=== PATIENT | male | born 1930 | race Caucasian/White ===

== ENCOUNTER 2016-04-09 11:05 | Inpatient (IN) ==
[2016-04-09] MEDS ORDERED: Alteplase (Activase) 6 MG in EMPTY BAG 1 EACH IVP ONE (11:22)
--- NOTE | 2016-04-09 11:36 | Emergency Department Note ---
Disposition Clinical Impression: Weakness, Dysphasia, Acute on chronic renal insufficiency CVA (cerebral vascular accident) Qualifiers: CVA mechanism: unspecified Qualified Code(s): I63.9 - Cerebral infarction, unspecified Disposition: Admitted As Inpatient Condition: Fair Neuro HPI - General Chief Complaint: ED Neuro Symptoms/Deficit Stated Complaint: poss stroke Time Seen by Provider: 04/09/16 11:08 Source: patient, EMS Mode of arrival: EMS Limitations: no limitations Nursing Notes Reviewed: Yes Vital Signs Reviewed: Yes - History of Present Illness HPI Narrative: 85-year-old male history of hypertension hyperlipidemia, suspected possible previous TIAs however no previous stroke documented, per patient and his daughter, he woke up at 6 AM with a headache, prior to that her last and well was on 04/08 at 9 PM, after 6 AM, he had the headache did not get up or do anything and went straight back to sleep. He woke up again at 8:30 AM with a headache still but now had difficulty with word finding, difficulty reading and speaking, and some gait issues per his daughter. No weaknesses as upper or lower extremities. Presented to the [facility], he was then transferred to the [facility] arrival per documented in nursing documentation, still with headache, some slurred speech although this is improved per patient. Onset of Symptoms Date: 04/08/16 Onset of Symptoms Time: 21:00 Symptom Onset Unknown: No Location: speech, right face, dysarthria History of same: No Severity: mild Quality: weakness (facial) Improves with: time Worsens with: none Context: gradual onset On Anticoagulants: No Associated symptoms: Reports: headaches. Denies: confusion, chest pain, diaphoresis, loss of appetite, nausea/vomiting Treatments Prior to Arrival: none - Related Data Home Medications: Home Medications Medication Instructions Recorded Confirmed Albuterol Sulfate [Albuterol 2 puff IH Q6H PRN 04/09/16 04/09/16 Inhaler] Aspirin Enteric Coated [Aspirin EC] 81 mg PO DAILY 04/09/16 04/09/16 Fluticasone Propionate Nasal 100 mcg NS BID 04/09/16 04/09/16 [Flonase] Hydrochlorothiazide 25 mg PO DAILY 04/09/16 04/09/16 Ibuprofen [Motrin] 600 mg PO TID PRN 04/09/16 04/09/16 Ketoconazole 2% CRM [Nizoral Cream] 1 appl TP DAILY 04/09/16 04/09/16 Lisinopril [Zestril] 5 mg PO DAILY 04/09/16 04/09/16 Olodaterol HCl [Striverdi Respimat] 2 puff IH DAILY 04/09/16 04/09/16 Propylene Glycol/Peg 400 [Systane 1 drop BOTH EYES QID 04/09/16 04/09/16 0.3-0.4% Eye Drops] Ranitidine HCl [Acid Production Honing Machine Operator] 150 mg PO DAILY PRN 04/09/16 04/09/16 Sennosides/Docusate Sodium [Senna 1 each PO BID 04/09/16 04/09/16 Plus] Tamsulosin [Flomax] 0.4 mg PO DAILY 04/09/16 04/09/16 Allergies/Adverse Reactions: Allergies Allergy/AdvReac Type Severity Reaction Status Date / Time carbamazepine AdvReac Hives Verified 04/09/16 11:08 niacin AdvReac Hives Verified 04/09/16 11:08 All systems ED: reviewed and negative except as stated. Constitutional: Reports: as per HPI, weakness. Denies: fever, chills Cardiovascular: Denies: chest pain, palpitations, dyspnea on exertion Respiratory: Denies: cough, dyspnea, wheezes Gastrointestinal: Denies: abdominal pain, nausea, vomiting, diarrhea Genitourinary: Denies: urgency, dysuria, frequency Musculoskeletal: Denies: back pain, neck pain Neurological: Reports: headache, weakness, confusion, abnormal gait. Denies: numbness, paresthesias, vertigo Psychiatric: Denies: anxiety, depression Past Medical History - Past Medical History Attestation: Yes The following information was validated with the patient. Source: patient Medical history: Reports: arthritis, cancer, COPD, coronary artery disease, hyperlipidemia, hypertension, TIA Psychiatric history: Reports: no psych history - Social History Smoking Status: Unknown if ever smoked Smokeless Tobacco Status: No Alcohol use: Reports: none Drug use: Reports: none Physical Exam Constitutional: Elderly male in no acute distress, vital signs within normal limits, appears stated age, is mildly confused HEENT: NCAT, sclera anicteric, PERRLA bilaterally, mucous membranes dry. Neck: normal inspection, neck is supple, trachea midline, no JVD Resp: normal chest inspection, CTA bilaterally, no resp distress, symmetric chest rise CV: RRR, no m/g/r, Pulses +2 Rad, +2 DP/PT bilaterally, no pedal edema GI: normal inspection, Soft, NTND, BS present and normoactive Back: normal inspection, no tenderness to palpation Neuro: Alert and oriented to self and place knows his age and what month it is , NIH of 4C documentation, has mild dysarthria and aphasia, left-sided facial numbness and facial droop him a 5/5 motor bilateral upper and lower extremities. MSK: normal inspection, bilateral UE and LE with normal ROM and no deformities Psych: normal mood, normal affect Skin: No rashes, skin warm, dry, intact - General Limitations: no limitations General appearance: alert Course Course Narrative: 85 male with acute onset of neurologic symptoms including dysarthria and aphasia , facial droop, gait weakness per family, besides his gait which was not tested , his NIH was 4, see nursing augmentation for times, patient was evaluated in the emergency department within 5 minutes, a stroke alert was called due to possible last known well of 6 AM, within 5-1/2 hours of the stroke window, however his symptoms did start with a headache at 6 AM, this morning at 9 PM yesterday 04/08 he was last seen and feeling well. Therefore unclear if his etiology was within the last 5 hours or further out. [facility] neurology consultation, stat CT ordered, tpa ordered pending not to be given, call to pharmacy also, patient is not likely a TPA candidate given age, improvement of symptoms, mild symptoms with an NIH of 4, and unclear stroke window either 5 and half hours or greater than 12 hours out from acute onset - Reevaluation(s) Reevaluation #1: Spoke with Dr Romero, agrees with plan, and management this time, patient with negative CTA head and neck negative for acute thrombus therefore will defer from transferring to [facility] and admit to [place], will do inpatient admission, stroke workup admit to hospitalist. Time: 15:10 Reevaluation #2: ADmitted to Dr Patterson after discussion with neurology in stable condition. 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 at 11:38 states no education for 6 AM lasted well, will make it a 9 PM 04/08/2016 last him well given that he woke up with a headache, but did not walk around talk just went back to sleep, for this reason the patient will be in a 16 hour window for endovascular retrieval, otherwise admit for ischemic CVA to [place], possible retrieval if he has any positive findings on CTA head and neck, at this time called Pharmacy at 11:51 to cancel TPA Consultation #2: Head CT Negative per margot Gan Time: 11:51 Vital Signs Temperature 98.7 F 04/09/16 11:09 Pulse Rate 69 04/09/16 11:09 Respiratory Rate 16 04/09/16 11:09 Blood Pressure 162/74 04/09/16 11:09 O2 Sat by Pulse Oximetry 98 04/09/16 11:09 Temperature 98.7 F 04/09/16 11:09 Pulse Rate 73 04/09/16 14:31 Respiratory Rate 16 04/09/16 15:45 Blood Pressure 156/82 04/09/16 15:45 O2 Sat by Pulse Oximetry 99 04/09/16 14:31 Oxygen Delivery Oxygen Delivery Room Air Neuro Symptoms/Deficit - MDM Narrative Medical decision making narrative: 84-year-old male with probable CVA, last and well was at 9 PM, therefore no candidacy for TPA and out of the window for revascularization given no evidence of acute thrombus on CTA of head or neck, chest medicine service after consultation with neurology, stable condition - Differential Diagnosis Likely: cerebrovascular accident, transient cerebral ischemia - Medical Records Medical records reviewed: Yes I reviewed the patient's medical records. - Lab Data Lab results reviewed: Yes I reviewed the patient's lab results. Result diagrams: 04/09/16 11:30 04/09/16 11:30 Lab Results 04/09/16 04/09/16 04/09/16 Range/Units 11:10 11:30 11:30 WBC 10.3 (4.3-11.1) K/mcL RBC 4.63 (4.19-5.50) M/mcL Hgb 13.9 (12.9-16.9) g/dL Hct 41.2 (37.5-50.1) % MCV 89.0 (83.0-100.0) fL MCH 30.0 (28.0-33.3) pg MCHC 33.7 (31.6-35.5) g/dL RDW 13.4 (11.5-14.5) % Plt Count 249 (140-400) K/mcL MPV 9.1 L (9.4-12.4) fL Immature Gran % 0.3 (0-4) % Seg Neutrophils % 58.8 % Lymphocytes % 30.5 % Monocytes % 8.0 % Eosinophils % 1.9 % Basophils % 0.5 % Neutrophils # 6.0 (1.6-8.9) K/mcL Lymphocytes # 3.1 (0.6-4.6) K/mcL Monocytes # 0.8 (0.0-1.3) K/mcL Eosinophils # 0.2 (0.0-0.6) K/mcL Basophils # 0.1 (0.0-0.2) K/mcL PT 10.3 (9.4-12.1) Seconds INR 1.0 APTT 31.0 (26.0-36.0) Seconds Sodium (136-145) mEq/L Potassium (3.5-4.5) mEq/L Chloride (98-109) mEq/L Carbon Dioxide (19-29) mEq/L BUN (8-26) mg/dL Creatinine (0.72-1.25) mg/dL Est GFR ( Amer) (> 60) Est GFR (Non-Af Amer) (> 60) BUN/Creatinine Ratio (6-26) Glucose (70-99) mg/dL POC Glucose 89 (58-89) Calculated Osmolality (280-300) Calcium (8.6-10.8) mg/dL Troponin I (0-0.03) ng/mL 04/09/16 04/09/16 Range/Units 11:30 11:30 WBC (4.3-11.1) K/mcL RBC (4.19-5.50) M/mcL Hgb (12.9-16.9) g/dL Hct (37.5-50.1) % MCV (83.0-100.0) fL MCH (28.0-33.3) pg MCHC (31.6-35.5) g/dL RDW (11.5-14.5) % Plt Count (140-400) K/mcL MPV (9.4-12.4) fL Immature Gran % (0-4) % Seg Neutrophils % % Lymphocytes % % Monocytes % % Eosinophils % % Basophils % % Neutrophils # (1.6-8.9) K/mcL Lymphocytes # (0.6-4.6) K/mcL Monocytes # (0.0-1.3) K/mcL Eosinophils # (0.0-0.6) K/mcL Basophils # (0.0-0.2) K/mcL PT (9.4-12.1) Seconds INR APTT (26.0-36.0) Seconds Sodium 139 (136-145) mEq/L Potassium 4.1 (3.5-4.5) mEq/L Chloride 105 (98-109) mEq/L Carbon Dioxide 26 (19-29) mEq/L BUN 18 (8-26) mg/dL Creatinine 1.26 H (0.72-1.25) mg/dL Est GFR ( Amer) > 60 (> 60) Est GFR (Non-Af Amer) 55 L (> 60) BUN/Creatinine Ratio 14 (6-26) Glucose 95 (70-99) mg/dL POC Glucose (58-89) Calculated Osmolality 290 (280-300) Calcium 9.6 (8.6-10.8) mg/dL Troponin I 0.01 (0-0.03) ng/mL - Radiology Data Radiology results reviewed: Yes I reviewed the patient's radiology results. - EKG Data EKG attestation: Yes I reviewed and interpreted this EKG. EKG shows normal: sinus rhythm Rate: normal (Rate of 70 R1 66 QRS [address] depression in lead V3 seen on previous EKG) Interpretation: no acute changes - Core Measures AMI Core Measures Followed: No Measure Exclusions: not indicated NIH Stroke Scale - Level of Consciousness LOC: Alert - LOC Questions LOC Questions: Answers both correctly - LOC Commands LOC Commands: Performs both correctly - Best Gaze Best Gaze: Normal - Visual Visual: No visual loss - Facial Palsy Facial Palsy: Minor asymmetry on smiling, flattened nasolabial fold - Motor Arms Motor Arm-Left: No drift for 10 seconds Motor Arm-Right: No drift for 10 seconds - Motor Legs Motor Leg-Left: No drift for 5 seconds Motor Leg-Right: No drift for 5 seconds - Limb Ataxia Limb Ataxia: Absent of affected limb too weak to perform exam - Sensory Sensory: Mild to moderate loss, "not as sharp" - Best Language Best Language: Mild to moderate aphasia. Examiner can identify picture from response - Dysarthria Dysarthria: Mild, slurs some words - Extinction and Inattention Extinction and Inattention: Normal - NIHSS Total Score NIHSS Total Score: 4 TPA Checklist - Source Information Source: Family - Eligibilty for IV tPA 1. LKW equal to or less than 4.5 hours be before treatment: No 2. Clinical diagnosis of ischemic stroke causing deficit: Yes 3. Age 18 years or older: Yes - Contraindications 4. Evidence of intracranial hemorrhage on pretreatment CT: No 5. Presentation suggests subarachnoid hem, even if CT normal: No 6. CT shows multilobar infarction: No 7. History of intracranial hemorrhage: No 8. Known neoplasm, arteriovenous malformation, or aneurysm: No 9. Significant head trauma (w/ LOC) or CVA in last 3 months: No 10. Intracranial or intraspinal surgery in 3 months: No 11. Arterial puncture at non-compressable site/LP in 7 days: No 12. BP elevated (systolic > 185 or diastolic > 110): No 13. Abnormal Blood Glucose (<50 or >400mg/dl): No 14. Active internal bleeding: No 15. Known bleeding risk (including; not limited to 16-18): No 16. Heparin/argatroban/bivalirudin w/in 48hrs & PTT > normal: No 17. Platelet count less than 100,000/MM3: No 18. Current or recent use of anticoagualants (see protocol): No - Relative Contraindications 19. Only minor or rapidly improving stroke symptoms: Yes 20. Seizure at onset w/ postictal residual neuro impairments: No 21. : No 22. Current/recent use Effient (7 days) or Brilinta (5 days): No 23. Major surgery or serious truama in last 14 days: No 24. GI or urinary tract hemorrhage in last 21 days: No 25. Myocardial infarction within last 3 months: No - LKW: 3-4.5 hrs Add. Contraindications Patient/family understanding: The patient/family members have been counseled and understood the risk, benefit , and alternatives of treatment.
[2016-04-09 11:37] LABS: Basophils # 0.1 K/mcL (0.0-0.2); Basophils % 0.5 %; Eosinophils # 0.2 K/mcL (0.0-0.6); Eosinophils % 1.9 %; Hematocrit 41.2 % (37.5-50.1); Hemoglobin 13.9 g/dL (12.9-16.9); Immature Granulocytes % 0.3 % (0-4); Lymphocytes # 3.1 K/mcL (0.6-4.6); Lymphocytes % 30.5 %; Mean Corpuscular HGB Conc 33.7 g/dL (31.6-35.5); Mean Platelet Volume 9.1 fL (9.4-12.4); Monocytes # 0.8 K/mcL (0.0-1.3); Red Blood Count 4.63 M/mcL (4.19-5.50); Red Cell Distribution Width 13.4 % (11.5-14.5); Segmented Neutrophils % 58.8 %
[2016-04-09 11:39] LABS: Platelet Count 249 K/mcL (140-400)
[2016-04-09 11:48] LABS: Prothrombin Time 10.3 Seconds (9.4-12.1)
[2016-04-09 11:49] LABS: BUN/Creatinine Ratio 14 (6-26); Blood Urea Nitrogen 18 mg/dL (8-26); Calcium 9.6 mg/dL (8.6-10.8); Carbon Dioxide 26 mEq/L (19-29); Chloride 105 mEq/L (98-109); Glucose 95 mg/dL (70-99); Osmolality,Calculated 290 (280-300); Potassium 4.1 mEq/L (3.5-4.5); Sodium 139 mEq/L (136-145); eGFR For African Americans > 60 (> 60); eGFR For Non-African Americans 55 (> 60)
--- NOTE | 2016-04-09 11:52 | Emergency Department Note ---
Disposition Clinical Impression: Weakness, Dysphasia, CVA (cerebral vascular accident), Acute on chronic renal insufficiency Disposition: Admitted As Inpatient Condition: Fair General Adult HPI - General Chief complaint: ED Neuro Symptoms/Deficit Stated complaint: poss stroke Time Seen by Provider: 04/09/16 11:08 Source: patient, EMS Mode of arrival: EMS Limitations: no limitations - History of Present Illness Pain Scale: 0 - Related Data Home Medications Medication Instructions Recorded Confirmed Albuterol Sulfate [Albuterol 2 puff IH Q6H PRN 04/09/16 04/10/16 Inhaler] Fluticasone Propionate Nasal 100 mcg NS BID 04/09/16 04/10/16 [Flonase] Hydrochlorothiazide 25 mg PO DAILY 04/09/16 04/10/16 Ibuprofen [Motrin] 600 mg PO TID PRN 04/09/16 04/10/16 Ketoconazole 2% CRM [Nizoral Cream] 1 appl TP DAILY 04/09/16 04/10/16 Lisinopril [Zestril] 5 mg PO DAILY 04/09/16 04/10/16 Olodaterol HCl [Striverdi Respimat] 2 puff IH DAILY 04/09/16 04/10/16 Propylene Glycol/Peg 400 [Systane 1 drop BOTH EYES QID 04/09/16 04/10/16 0.3-0.4% Eye Drops] Ranitidine HCl [Acid Tassel Clipper] 150 mg PO DAILY PRN 04/09/16 04/10/16 Sennosides/Docusate Sodium [Senna 1 each PO BID 04/09/16 04/10/16 Plus] Tamsulosin [Flomax] 0.4 mg PO DAILY 04/09/16 04/10/16 Oxycodone HCl/Acetaminophen 1 each PO Q4HR PRN 04/12/16 04/12/16 [Percocet 5-325 mg Tablet] Previous Rx's Medication Instructions Recorded Aspirin 325 mg PO DAILY #30 tablet 04/10/16 Simvastatin [Zocor] 40 mg PO HS tablet 04/10/16 Allergies Allergy/AdvReac Type Severity Reaction Status Date / Time carbamazepine AdvReac Hives Verified 04/10/16 17:12 niacin AdvReac Hives Verified 04/10/16 17:12 Past Medical History - Past Medical History Medical history: Reports: arthritis, cancer, COPD, coronary artery disease, hyperlipidemia, hypertension, TIA Psychiatric history: Reports: no psych history - Social History Smoking Status: Unknown if ever smoked Smokeless Tobacco Status: No Alcohol use: Reports: none Drug use: Reports: none Physical Exam - General Limitations: no limitations General appearance: alert Course - Reevaluation(s) Reevaluation #1: I saw the patient with the resident, Dr. Juan. Patient presents with what sounds like strokelike symptoms which included aphasia like symptoms. Patient states he woke up about 6:00 with a headache and went back to sleep when he woke up at 8:00 he was having some difficulty formulating words. He was also having difficulty reading. Currently he appears a little droop on the face on the right hand side. 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 The cranial nerve examination otherwise appears to be normal. Rest of the neurologic examination seems good. If we go with the 6:00 onset of symptoms, the patient is 5 hours into the symptoms. If we go with the 8:00 onset and the patient is already 3 hours into symptoms by the time he arrived to the department. Either way he is not a TPA candidate but may be a candidate for endovascular treatment. We called a stroke alert and says where they have spoken with the subacute stroke specialist at [facility]. He recommended CTA of the brain and neck. If the clot is found to then the patient is to be transferred to [facility] for endovascular recovery. If the CTA is negative then the patient can be admitted here or [facility] for stroke as the patient desires. The CTA has been ordered. We will monitor the patient. Time: 11:52 Vital Signs Temperature 98.7 F 04/09/16 11:09 Pulse Rate 69 04/09/16 11:09 Respiratory Rate 16 04/09/16 11:09 Blood Pressure 162/74 04/09/16 11:09 O2 Sat by Pulse Oximetry 98 04/09/16 11:09 Temperature 97.6 F 04/10/16 07:45 Pulse Rate 62 04/10/16 11:32 Respiratory Rate 18 04/10/16 11:32 Blood Pressure 117/69 04/10/16 11:32 O2 Sat by Pulse Oximetry 96 04/10/16 11:32 Oxygen Delivery Oxygen Delivery Room Air Medical Decision Making - Lab Data Result diagrams: 04/10/16 05:56 04/10/16 05:56 Lab Results 04/09/16 04/09/16 04/09/16 Range/Units 11:10 11:30 11:30 WBC 10.3 (4.3-11.1) K/mcL RBC 4.63 (4.19-5.50) M/mcL Hgb 13.9 (12.9-16.9) g/dL Hct 41.2 (37.5-50.1) % MCV 89.0 (83.0-100.0) fL MCH 30.0 (28.0-33.3) pg MCHC 33.7 (31.6-35.5) g/dL RDW 13.4 (11.5-14.5) % Plt Count 249 (140-400) K/mcL MPV 9.1 L (9.4-12.4) fL Immature Gran % 0.3 (0-4) % Seg Neutrophils % 58.8 % Lymphocytes % 30.5 % Monocytes % 8.0 % Eosinophils % 1.9 % Basophils % 0.5 % Neutrophils # 6.0 (1.6-8.9) K/mcL Lymphocytes # 3.1 (0.6-4.6) K/mcL Monocytes # 0.8 (0.0-1.3) K/mcL Eosinophils # 0.2 (0.0-0.6) K/mcL Basophils # 0.1 (0.0-0.2) K/mcL PT 10.3 (9.4-12.1) Seconds INR 1.0 APTT 31.0 (26.0-36.0) Seconds Sodium (136-145) mEq/L Potassium (3.5-4.5) mEq/L Chloride (98-109) mEq/L Carbon Dioxide (19-29) mEq/L BUN (8-26) mg/dL Creatinine (0.72-1.25) mg/dL Est GFR ( Amer) (> 60) Est GFR (Non-Af Amer) (> 60) BUN/Creatinine Ratio (6-26) Glucose (70-99) mg/dL POC Glucose 89 (58-89) Calculated Osmolality (280-300) Calcium (8.6-10.8) mg/dL Troponin I (0-0.03) ng/mL 04/09/16 04/09/16 04/09/16 Range/Units 11:30 11:30 16:55 WBC (4.3-11.1) K/mcL RBC (4.19-5.50) M/mcL Hgb (12.9-16.9) g/dL Hct (37.5-50.1) % MCV (83.0-100.0) fL MCH (28.0-33.3) pg MCHC (31.6-35.5) g/dL RDW (11.5-14.5) % Plt Count (140-400) K/mcL MPV (9.4-12.4) fL Immature Gran % (0-4) % Seg Neutrophils % % Lymphocytes % % Monocytes % % Eosinophils % % Basophils % % Neutrophils # (1.6-8.9) K/mcL Lymphocytes # (0.6-4.6) K/mcL Monocytes # (0.0-1.3) K/mcL Eosinophils # (0.0-0.6) K/mcL Basophils # (0.0-0.2) K/mcL PT (9.4-12.1) Seconds INR APTT (26.0-36.0) Seconds Sodium 139 (136-145) mEq/L Potassium 4.1 (3.5-4.5) mEq/L Chloride 105 (98-109) mEq/L Carbon Dioxide 26 (19-29) mEq/L BUN 18 (8-26) mg/dL Creatinine 1.26 H (0.72-1.25) mg/dL Est GFR ( Amer) > 60 (> 60) Est GFR (Non-Af Amer) 55 L (> 60) BUN/Creatinine Ratio 14 (6-26) Glucose 95 (70-99) mg/dL POC Glucose (58-89) Calculated Osmolality 290 (280-300) Calcium 9.6 (8.6-10.8) mg/dL Troponin I 0.01 0.00 (0-0.03) ng/mL Attestation Statement - Attestation Attestation: I, Dr. Chow, examined this patient [id number] and my medical decision- making was reviewed with Dr. Juan, Resident Physician. I agree with the documented findings, disposition and treatment plan as described except to the extent set forth below. Please see my progress notes for details.
[2016-04-09] MEDS ORDERED: 0.9 % Sodium Chloride 500 ML IV ONE (12:21)
[2016-04-09] MEDS ORDERED: Aspirin 81 MG TAB.CHEW PO ONE (12:47)
--- NOTE | 2016-04-09 15:33 | Electrocardiograph Report ---
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
--- NOTE | 2016-04-09 16:11 | Internal Med History&Physical ---
Date of Encounter: 04/09/16 Time of Encounter: 16:03 Assessment and Plan (1) CVA (cerebral vascular accident) Current visit: Yes Status: Acute Clinical and tomographic picture consistent with CVA, no history of prior CVAs documented. Out of window for therapy with tPA. Patient is a chronic user of aspirin. Head CT noted, CT angio of head and neck noted. Will continue with aspirin and DVT prophylais. Tele monitoring. Neurology consult for further recommendations. Neuro checks. Echo. Smoking cessation. Lipid panel. A1C PT OT eval. advisory services associate eval. Qualifiers: CVA mechanism: unspecified Qualified Code(s): I63.9 - Cerebral infarction, unspecified (2) COPD (chronic obstructive pulmonary disease) Current visit: Yes Status: Acute LTOT. NBZ PRN. Qualifiers: COPD type: unspecified COPD Qualified Code(s): J44.9 - Chronic obstructive pulmonary disease, unspecified (3) Tobacco use disorder Current visit: Yes Status: Acute (4) Hypertension Current visit: Yes Status: Acute Continue monitoring for now. Qualifiers: Hypertension type: essential hypertension Qualified Code(s): I10 - Essential (primary) hypertension (5) Hyperlipidemia Current visit: Yes Status: Acute Lipid panel. Qualifiers: Hyperlipidemia type: unspecified Qualified Code(s): E78.5 - Hyperlipidemia , unspecified Internal Medicine - H&P: HPI Chief complaint: dysarthria Admitted From: Emergency Dept Plans for Post Hospital Care: Home History of present illness: Mr. Schwartz is a 85 year old male with PMH of HTN, chronic active smoker, hyperlipidemia, COPD on LTOT, presented to our ED due to dysarthria, headache and facial droop which was reported this morning. Patient states that his daughter brought him to the hospital for medical care and evaluation. A stroke alert was called by the ED staff. At 9 PM yesterday 04/08 he was last seen and feeling well. [facility] neurology consultation, stat CT ordered by the ED team , patient was not considered a tPA candidate. Underwent Head CT which ruled out bleeding, however it revealed extensive bilateral cerebral small vessel ischemic disease, due to findings patient underwent CT angio of head and neck. No lesions that could potentially receive endovascular procedures were found. ED team D/W neurology and patient was admitted for further workup. Initial lab results essentially unremarkable. During my encounter eith the patient he was still in the ED holding area, he had lunch and was otherwise in no distress and breathing ambient air. He denies fevr, chest pain, shortness of breath, syncope , falls, trauma, diarrhea. Past Med Surg Social Fam HX - Past Medical History Medical history: arthritis, cancer, COPD, coronary artery disease, hyperlipidemia, hypertension, TIA Psychiatric history: no psych history - Social History Smoking Status: Current every day smoker Smokeless Tobacco Status: No Alcohol use: none Drug use: none - Additional Family History Additional family history: No family history of CAD Internal Medicine - H&P: Meds Albuterol Sulfate [Albuterol Inhaler] 2 puff IH Q6H PRN 04/09/16 [History] Aspirin Enteric Coated [Aspirin EC] 81 mg PO DAILY 04/09/16 [History] Fluticasone Propionate Nasal [Flonase] 100 mcg NS BID 04/09/16 [History] Hydrochlorothiazide 25 mg PO DAILY 04/09/16 [History] Ibuprofen [Motrin] 600 mg PO TID PRN 04/09/16 [History] Ketoconazole 2% CRM [Nizoral Cream] 1 appl TP DAILY 04/09/16 [History] Lisinopril [Zestril] 5 mg PO DAILY 04/09/16 [History] Olodaterol HCl [Striverdi Respimat] 2 puff IH DAILY 04/09/16 [History] Propylene Glycol/Peg 400 [Systane 0.3-0.4% Eye Drops] 1 drop BOTH EYES QID 04/09 [History] Ranitidine HCl [Acid Funds Development Director] 150 mg PO DAILY PRN 04/09/16 [History] Sennosides/Docusate Sodium [Senna Plus] 1 each PO BID 04/09/16 [History] Tamsulosin [Flomax] 0.4 mg PO DAILY 04/09/16 [History] Allergies carbamazepine Adverse Reaction (Verified 04/09/16 11:08) Hives niacin Adverse Reaction (Verified 04/09/16 11:08) Hives All Systems PM: A 10-system review of systems was performed and is negative for pertinent findings except as documented above in the HPI. - Constitutional Constitutional: as per HPI, no chills, no fever(s), no night sweats - EENT Eyes: as per HPI, no change in vision, no discharge, no pain, no photophobia Ears: as per HPI, no ear discharge, no ear pain, no tinnitus Nose, mouth and throat: as per HPI, no dysphagia, no nasal discharge, no neck pain, no sore throat - Breasts Breasts: as per HPI - Cardiovascular Cardiovascular ROS IM: as per HPI, no chest pain, no diaphoresis, no dyspnea, no lightheadedness, no palpitations, no syncope - Respiratory Respiratory: as per HPI, cough, no dyspnea, no wheezing, no excessive phlegm production - Gastrointestinal Gastrointestinal: as per HPI, no abdominal pain, no diarrhea, no hematemesis, no hematochezia, no melena, no nausea, no vomiting - Genitourinary Genitourinary ROS male: as per HPI - Musculoskeletal Musculoskeletal ROS IM: as per HPI, no numbness, no tingling - Integumentary Integumentary IM: as per HPI, no rash, no unusual bruising - Neurological Neurological ROS: as per HPI, abnormal speech, headache(s), no confusion, no convulsions, no focal weakness, no numbness, no tingling, no tremor(s) - Psychiatric Psychiatric: as per HPI - Endocrine Endocrine IM: as per HPI - Hematologic/Lymphatic Hematologic/Lymphatic: as per HPI, no easy bruising - Allergic/Immunologic Allergic/Immunologic: as per HPI - Constitutional Vitals: Temp Pulse Resp BP Pulse Ox 98.7 F 73 16 156/82 99 04/09/16 11:09 04/09/16 14:31 04/09/16 15:45 04/09/16 15:45 04/09/16 14:31 General appearance: Present: cooperative, A&O X 3, pleasant, no acute distress Exam: alert, awake, oriented, pleasant, good spirits. - Head Head exam: Present: atraumatic, normocephalic - Eye Eye exam: Present: PERRL, conjuntiva pink, sclera anicteric Pupils: Present: PERRL - Neck Neck exam general surgery: Present: supple, trachea midline. Absent: lymphadenopathy - Respiratory Respiratory exam: Present: CTAB. Absent: accessory muscle use, rales, rhonchi, wheezes - Cardiovascular Cardiovascular exam: Present: RRR, +S1, +S2. Absent: diastolic murmur, gallop, rubs, systolic murmur - GI/Abdominal GI/Abdominal exam: Present: normal bowel sounds, soft, no peritoneal signs. Absent: distended, tenderness - Extremities Exam Extremities exam: Present: warm, radial pulses palpable and symetrical. Absent : calf tenderness, cyanotic, pedal edema - Neurological Exam Neurological exam: Present: CN II-XII intact, oriented X3, no focal deficits. Absent: pronater drift, facial droop, speech deficit - Skin Skin exam: Present: dry, intact Internal Med - H&P Results - Labs CBC & Chem 7: 04/09/16 11:30 04/09/16 11:30
[2016-04-09] MEDS ORDERED: Naloxone 0.4 MG/ML INJ IVP PRN (16:17)
[2016-04-09] MEDS ORDERED: *HR* OxyCODONE Immed Rel 5 MG TABLET PO PRN (16:17)
[2016-04-09] MEDS ORDERED: Ondansetron 4 MG/2 ML VIAL IVP PRN (16:17)
[2016-04-09] MEDS ORDERED: Acetaminophen 325 MG TABLET PO PRN (16:17)
[2016-04-09] MEDS ORDERED: Ipratropium/Albuterol Neb 3 ML IH PRN (16:21)
[2016-04-09] MEDS: *HR* Heparin 5,000 UNIT/ML VIAL SQ SCH (18:17)
--- NOTE | 2016-04-09 19:22 | Neurology - Consult Note ---
Date of Encounter: 04/09/16 Time of Encounter: 19:15 Assessment and Plan (1) TIA (transient ischemic attack) Current Visit: Yes Status: Acute Patient developed transient speech difficulty, headaches and possible right sided paresis? totally recovered within 5-6 hours. Has multiple risk factors for CVA/TIA. CT of head showed chronic white matter ischemic changes, is at risk of developing lacunar infarct, embolic event is also possible. No history of prior atrial fibrillation or other type of cardiac dysarrhythmia. Will monitor cardiac rhythm with telemetry and complete stroke work up including carotid artery doppler and echocardigraphy. Already had CTA of neck showing left ICA 50% stenosis, which could be clinically significant but does not seem to meet criteria for surgical intervention ( namely, carotid endarterectomy). Would recommend aspirin 325mg daily. Continue statin therapy. Risk factor modification for CVA/TIA Qualifiers: Transient cerebral ischemia type: unspecified Qualified Code(s): G45.9 - Transient cerebral ischemic attack, unspecified History of Present Illness Chief complaint: severe headache and slurred speech HPI: Mr. Schwartz is a 85 year old male with PMH Significant for HTN, hyperlipidemia who developed acute onset of headache and slurred speech, questionable right sided weakness. Patient says that this morning he woke up with a bad headache, and he does not normally have headaches. at the time he also has some difficulty speaking and says that he could not complete a whole sentence. He went to ER at about 3 pm, already 6 hours after onset of symptoms. Evaluated by [facility] stroke team and recommended not tPA thrombolysis. CT of head showed no acute abnormality. CTA of head and neck showed 50% ICA stenosis on the left side otherwise unremarkable study. Patient used to take a baby aspirin 81mg daily for unclear reason. Relates that his family physician suggested that he takes a baby aspirin every day. Patient is currently asymptomatic and wants to go home. Past Med Surg Social Fam HX - Past Medical History Medical history: arthritis, cancer, COPD, coronary artery disease, hyperlipidemia, hypertension, TIA Psychiatric history: no psych history - Past Surgical History Surgical History: appendectomy, cholecystectomy - Social History Smoking Status: Current every day smoker Smokeless Tobacco Status: No Alcohol use: none Drug use: none - Family History Father Living Status: Age at : 80 Cause of : cancer Hx Family Cardiac Disorders: No Hx Family Respiratory Disorders: No Hx Family Cancer: Yes Hx Family Endocrine Disorder: No Hx Family Medical Disorders: Yes Medications and Allergies Albuterol Sulfate [Albuterol Inhaler] 2 puff IH Q6H PRN 04/09/16 [History] Aspirin Enteric Coated [Aspirin EC] 81 mg PO DAILY 04/09/16 [History] Fluticasone Propionate Nasal [Flonase] 100 mcg NS BID 04/09/16 [History] Ibuprofen [Motrin] 600 mg PO TID PRN 04/09/16 [History] Olodaterol HCl [Striverdi Respimat] 2 puff IH DAILY 04/09/16 [History] Propylene Glycol/Peg 400 [Systane 0.3-0.4% Eye Drops] 1 drop BOTH EYES QID 04/09 [History] RX: Hydrochlorothiazide 25 mg PO DAILY 04/09/16 [History] RX: Ketoconazole 2% CRM [Nizoral Cream] 1 appl TP DAILY 04/09/16 [History] RX: Lisinopril [Zestril] 5 mg PO DAILY 04/09/16 [History] Ranitidine HCl [Acid High School Computer Science Teacher] 150 mg PO DAILY PRN 04/09/16 [History] Sennosides/Docusate Sodium [Senna Plus] 1 each PO BID 04/09/16 [History] Tamsulosin [Flomax] 0.4 mg PO DAILY 04/09/16 [History] Allergies carbamazepine Adverse Reaction (Verified 04/09/16 11:08) Hives niacin Adverse Reaction (Verified 04/09/16 11:08) Hives All Systems: A 10-system review of systems was performed and is negative for pertinent findings except as documented above in the HPI. Physical Examination - Vital Signs Vital Signs: Initial Vital Signs Temp Pulse Resp BP Pulse Ox 98.7 F 69 16 162/74 98 04/09/16 11:09 04/09/16 11:09 04/09/16 11:09 04/09/16 11:09 04/09/16 11:09 - Constitutional General appearance: comfortable - Neurologic Sensorimotor examination: intact Detailed motor examination: grossly full strength in all extremities Motor examination - right side: 5/5: deltoids, biceps, triceps, wrist flexion, wrist extension, assembler installer structures, hip flexors, tibialis Anterior, quadriceps, toe extension (EHL), plantarflexion Motor examination - left side: 5/5: deltoids, biceps, triceps, wrist flexion, wrist extension, hip flexors, assembler installer structures, quadriceps, tibialis Anterior, toe extension (EHL), plantarflexion Detailed sensory examination: intact Reflex and gait examination: intact Reflexes: Biceps: 1+, Triceps: 1+, Brachioradialis: 1+, Patella: 1+, Achilles: 1 + Mental Status Examination: awake, alert, oriented to person, oriented to place, oriented to time, follows commands appropriately, answers questions appropriately, no agnosia, no aphasia, no aproxia Cranial nerve examination: PERRL, EOMI, visual garrett intact, corneal reflexes brisk symmetrically, sensory to face intact, mastication intact, no facial asymmetry is present, no dysarthria, hearing is intact symmetrically, soft palate elevates bilaterally upon phonation, gag reflex intact, flexes SCM and trapezius muscles symmetrically with full power, tongue protrudes midline, no atrophy or facial fasiculations present Results - Laboratory Findings CBC and BMP: 04/09/16 11:30 04/09/16 11:30 Abnormal lab findings: Abnormal lab results MPV 9.1 fL (9.4-12.4) L 04/09/16 11:30 Creatinine 1.26 mg/dL (0.72-1.25) H 04/09/16 11:30 Est GFR (Non-Af Amer) 55 (> 60) L 04/09/16 11:30 Consult Discharge Plan - Plan [facility]: [facility] [Primary Care Provider] -
[2016-04-09] MEDS ORDERED: Fluticasone Propionate Nasal 50 MCG/SPRAY BOTTLE NS SCH (21:00)
[2016-04-09] MEDS: Sennosides/Docusate Sodium TABLET PO SCH (21:39)
[2016-04-09] MEDS: Famotidine 20 MG TABLET PO SCH (21:39)
[2016-04-10 06:22] LABS: Prothrombin Time 10.8 Seconds (9.4-12.1)
[2016-04-10 06:24] LABS: Basophils % 0.5 %; Eosinophils # 0.2 K/mcL (0.0-0.6); Eosinophils % 2.7 %; Hematocrit 41.6 % (37.5-50.1); Immature Granulocytes % 0.2 % (0-4); Lymphocytes % 35.3 %; Mean Corpuscular HGB Conc 33.7 g/dL (31.6-35.5); Mean Corpuscular Hemoglobin 29.9 pg (28.0-33.3); Mean Corpuscular Volume 88.7 fL (83.0-100.0); Mean Platelet Volume 9.4 fL (9.4-12.4); Monocytes # 0.6 K/mcL (0.0-1.3); Monocytes % 7.2 %; Neutrophils # 4.6 K/mcL (1.6-8.9); Platelet Count 233 K/mcL (140-400); Red Blood Count 4.69 M/mcL (4.19-5.50); Red Cell Distribution Width 13.4 % (11.5-14.5); Segmented Neutrophils % 54.1 %
[2016-04-10 06:30] LABS: Alanine Aminotransferase 9 Units/L (0-55); Albumin 3.6 g/dL (3.5-5.0); Albumin/Globulin Ratio 1.1 (1.1-2.2); Alkaline Phosphatase 65 Units/L (38-126); Aspartate Amino Transferase 18 Units/L (5-34); BUN/Creatinine Ratio 15 (6-26); Bilirubin,Direct 0.2 mg/dL (0.0-0.5); Bilirubin,Indirect 0.2 mg/dL (0.0-1.2); Bilirubin,Total 0.4 mg/dL (0.2-1.2); Blood Urea Nitrogen 16 mg/dL (8-26); Calcium 9.2 mg/dL (8.6-10.8); Carbon Dioxide 24 mEq/L (19-29); Chloride 105 mEq/L (98-109); Chol/HDL Ratio 5.3 (0-4.9); Cholesterol 231 mg/dL (< 200); Globulin 3.3 g/dL (2.4-3.5); Glucose 90 mg/dL (70-99); HDL Cholesterol 44 mg/dL (40-59); LDL Cholesterol,Calculated 132 mg/dL (0-99); Magnesium 1.7 mg/dL (1.6-2.6); Osmolality,Calculated 285 (280-300); Potassium 4.1 mEq/L (3.5-4.5); Sodium 137 mEq/L (136-145); Total Protein 6.9 g/dL (6.0-8.3); Triglycerides 273 mg/dL (< 150); eGFR For African Americans > 60 (> 60); eGFR For Non-African Americans > 60 (> 60)
[2016-04-10] MEDS: Sennosides/Docusate Sodium TABLET PO SCH (07:31)
[2016-04-10] MEDS: Famotidine 20 MG TABLET PO SCH (07:31)
[2016-04-10] MEDS: *HR* Heparin 5,000 UNIT/ML VIAL SQ SCH (07:32)
[2016-04-10] MEDS ORDERED: Aspirin 325 MG TABLET PO SCH (09:00)
[2016-04-10] MEDS ORDERED: Aspirin 81 MG TAB.CHEW PO SCH (09:00)
--- NOTE | 2016-04-10 10:00 | ECHO - Doppler Report ---
Echocardiogram Name: Eugene Schwartz Date of Study: 04/10/2016 Date: 1930 Ht: 66.0 in Medical Record#: [id number] Age: 85 Wt: 155.0 lb Gender: Male BSA: 1.79 Order #: [id number] Location: [facility] Room #: [id number] Reading Physician: Martha Long DO Accounts Payable Coordinator: Nicola Wiseman RN Ordering Physician: Maximus Mccarthy MD Primary Physician: [facility] Indications: Cerebrovascular Accident Impressions: Patient requested to stop exam prematurely. LV systolic function appears normal in the PLAX view but other views were not able to be obtained. Left Ventricular Wall Motion: Rest Echo Findings The apex, apical inferior, mid inferior, basal inferior, apical anterior, mid anterior, basal anterior, apical septal, mid inferior septal, basal inferior septal, apical lateral, mid anterior lateral and basal anterior lateral ariza were not visualized. All other wall segments showed normal motion. Findings: Study Quality * Technically sub-optimal. Incomplete exam. Patient requested to stop prematurely. ECG Findings * Normal sinus rhythm. Tricuspid Valve * Tricuspid valve not well visualized. * No tricuspid regurgitation. Pulmonic Valve * Pulmonic valve is not well visualized. * No pulmonic stenosis. * No pulmonic regurgitation. Pulmonary Artery * Pulmonary artery not well visualized. Aorta * Normally sized aortic root. History Measurements: BP: 166/ 77 2D Normal Values IVSd: 1.20 cm 0.6 - 1.0 cm LVIDd: 3.90 cm 3.7 - 5.6 cm LVPWd: 1.00 cm 0.6 - 1.1 cm LVIDs: 2.70 cm 1.5 - 3.6 cm LA: 3.60 cm 2.0 - 4.0cm %FS: 30.80 cm >25 % LVOT Diam: 2.00 cm LA volume: Updated by Martha Long on 04/10/2016 9:55:06 AM electronically signed on 04/10/2016 9:56:57 AM with status of Final Wall Motion Reece: 1=Normal, 2=Hypokinesis, 3=Akinesis, 4=Dyskinesis, 5=Aneurysmal, 6=Hyperkinetic, X=Not Visualized (Blank)=Missing
[2016-04-10] MEDS ORDERED: Ipratropium/Albuterol Neb 3 ML IH ONE (10:26)
[2016-04-10 11:33] VITALS: BP 117/69
--- NOTE | 2016-04-10 11:34 | Discharge Summary ---
<Eugene Dubois - Last Filed: 04/10/16 13:22> Date of Encounter: 04/10/16 Time of Encounter: 11:32 - Discharge Diagnosis (1) COPD (chronic obstructive pulmonary disease) Priority: Primary Status: Acute Qualifiers: COPD type: unspecified COPD Qualified Code(s): J44.9 - Chronic obstructive pulmonary disease, unspecified (2) Hyperlipidemia Priority: Secondary Status: Acute Qualifiers: Hyperlipidemia type: unspecified Qualified Code(s): E78.5 - Hyperlipidemia , unspecified (3) Hypertension Priority: Secondary Status: Acute Qualifiers: Hypertension type: essential hypertension Qualified Code(s): I10 - Essential (primary) hypertension (4) TIA (transient ischemic attack) Priority: Secondary Status: Acute Qualifiers: Transient cerebral ischemia type: unspecified Qualified Code(s): G45.9 - Transient cerebral ischemic attack, unspecified - Discharge Medications Prescriptions: Aspirin 325 mg PO DAILY #30 tablet Home Medications: Albuterol Sulfate [Albuterol Inhaler] 2 puff IH Q6H PRN 04/09/16 [History] Fluticasone Propionate Nasal [Flonase] 100 mcg NS BID 04/09/16 [History] Hydrochlorothiazide 25 mg PO DAILY 04/09/16 [History] Ibuprofen [Motrin] 600 mg PO TID PRN 04/09/16 [History] Ketoconazole 2% CRM [Nizoral Cream] 1 appl TP DAILY 04/09/16 [History] Lisinopril [Zestril] 5 mg PO DAILY 04/09/16 [History] Olodaterol HCl [Striverdi Respimat] 2 puff IH DAILY 04/09/16 [History] Propylene Glycol/Peg 400 [Systane 0.3-0.4% Eye Drops] 1 drop BOTH EYES QID 04/09 [History] Ranitidine HCl [Acid Fishing Instructor] 150 mg PO DAILY PRN 04/09/16 [History] Sennosides/Docusate Sodium [Senna Plus] 1 each PO BID 04/09/16 [History] Tamsulosin [Flomax] 0.4 mg PO DAILY 04/09/16 [History] Aspirin 325 mg PO DAILY #30 tablet 04/10/16 [Rx] Simvastatin [Zocor] 40 mg PO HS tablet 02/28/17 [Rx] Allergies/Adverse Reactions: Allergies carbamazepine Adverse Reaction (Verified 04/10/16 17:12) Hives niacin Adverse Reaction (Verified 04/10/16 17:12) Hives Date of admission: 04/09/16 17:10 Primary care physician: ALKA Awan Discharging clinician: Eugene Dubois Anticipated date of discharge: 04/10/16 - Patient Status Disposition: Home Health Service Condition: Fair Functional capacity at discharge: independent ambulation Overall status at discharge: patient is progressing back to baseline - Discharge Instructions Instructions: Aspirin (By mouth), Transient Ischemic Attack (DC) Follow Up With: SONI,PCP [Primary Care Provider] - 04/12/16 2:30 pm Soham Romero MD [Partnered Physician] - (office will call you with appointment) Additional Instructions: As tolerated. - Diet and Activity Activity: increase activity as tolerated Diet: low fat, low cholesterol, low salt diet Hospital course: Mr. Schwartz is a 85 year old male who was admitted to [facility] for TIA. He had symptoms of slurred speech and facial droop. this resolved after 5-6 hours. He did have a CT of the brain which did not reveal acute stroke. He also had a CT angiogram which revealed 50% carotid stenosis of the left ICA. He had an Echocardiogram that reavealed a normal EF and left ventrical. However all views were not obtained because the patient requested the study be stopped prematurely. This AM patient has no complaints. He denies any focal neurologic weakness or sensory deficits. He denies any further slurred speech or facial drooping. He is ambulating without difficulty. He has a benign neurologic exam this AM. No abnormal rhythms were captured by telemetry. Blood pressure is well controlled. patient is dressed this AM and state he is leaving this AM one way or the other. He is stable so we will discharge him today. would recommend close follow up with PCP. PCP may consider repeat echocardiogram as an outpatient. However the patient is stable at this time and unwilling to undergo any further testing today so we will discharge him today. - Time Spent with Patient Total time spent providing and/or coordinating discharge services: Greater than 30 minutes (I spent approximately 35 minutes discharging this patient.) - Constitutional Vitals: Temp Pulse Resp BP Pulse Ox 97.6 F 64 18 166/77 97 04/10/16 07:45 04/10/16 07:45 04/10/16 07:45 04/10/16 07:45 04/10/16 07:45 General appearance: Present: cooperative, A&O X 3, pleasant, no acute distress - Head Head exam: Present: atraumatic, normocephalic - Eye Eye exam: Present: PERRL, conjuntiva pink, sclera anicteric Pupils: Present: PERRL - Neck Neck exam general surgery: Present: supple, trachea midline. Absent: lymphadenopathy - Respiratory Respiratory exam: Present: CTAB. Absent: accessory muscle use, rales, rhonchi, wheezes - Cardiovascular Cardiovascular exam: Present: RRR, +S1, +S2. Absent: diastolic murmur, gallop, rubs, systolic murmur - GI/Abdominal GI/Abdominal exam: Present: normal bowel sounds, soft, no peritoneal signs. Absent: distended, tenderness - Extremities Exam Extremities exam: Present: warm, radial pulses palpable and symetrical. Absent : calf tenderness, cyanotic, pedal edema - Neurological Exam Neurological exam: Present: CN II-XII intact, oriented X3, no focal deficits. Absent: pronater drift, facial droop, speech deficit - Skin Skin exam: Present: dry, intact - VTE Documentation of Mechanical Device: Graduated compression elastic hosiery <Maximus Mccarthy - Last Filed: 04/10/16 17:52> Date of Encounter: 04/10/16 - Discharge Diagnosis (1) CVA (cerebral vascular accident) Status: Acute Qualifiers: CVA mechanism: unspecified Qualified Code(s): I63.9 - Cerebral infarction, unspecified (2) COPD (chronic obstructive pulmonary disease) Status: Acute Qualifiers: COPD type: unspecified COPD Qualified Code(s): J44.9 - Chronic obstructive pulmonary disease, unspecified (3) Tobacco use disorder Status: Acute (4) Hypertension Status: Acute Qualifiers: Hypertension type: essential hypertension Qualified Code(s): I10 - Essential (primary) hypertension (5) Hyperlipidemia Status: Acute Qualifiers: Hyperlipidemia type: unspecified Qualified Code(s): E78.5 - Hyperlipidemia , unspecified Date of admission: 04/09/16 17:10 Primary care physician: PCP [place] Hospital course: Mr. Schwartz is a 85 year old male - Time Spent with Patient Total time spent providing and/or coordinating discharge services: - Constitutional Vitals: Temp Pulse Resp BP Pulse Ox 97.6 F 62 18 117/69 96 04/10/16 07:45 04/10/16 11:32 04/10/16 11:32 04/10/16 11:32 04/10/16 11:32 - Attending Attestation I examined this patient and my medical decision-making was reviewed with the RETURNING OFFICER/PA/Advanced Practice Nurse/Resident Physician. I agree with the documented findings, disposition and treatment plan as described except to the extent set forth below. Agree with DR. Dubois's note. CT angio noted. Neurology evaluation highly appreciated. D/C on aspirin. and statins. Follow up with pcp and neuro as outpatient.
== END 2016-04-10 13:00 | disposition home health service (06) | DRG 69 ==
LOC: EMEROO 11:05 → 2NENU 11:05 → SUATTDRO 17:10
PROVIDERS: ADMIT Internal Medicine; ATTEND Internal Medicine

== ENCOUNTER 2016-04-10 16:54 | Inpatient (IN) ==
[2016-04-10 17:54] LABS: Basophils % 0.4 %; Eosinophils # 0.1 K/mcL (0.0-0.6); Eosinophils % 1.1 %; Hematocrit 37.3 % (37.5-50.1); Hemoglobin 12.9 g/dL (12.9-16.9); Immature Granulocytes % 0.3 % (0-4); Lymphocytes # 2.1 K/mcL (0.6-4.6); Lymphocytes % 20.5 %; Mean Corpuscular HGB Conc 34.6 g/dL (31.6-35.5); Mean Corpuscular Hemoglobin 30.4 pg (28.0-33.3); Mean Corpuscular Volume 87.8 fL (83.0-100.0); Mean Platelet Volume 9.3 fL (9.4-12.4); Monocytes # 0.9 K/mcL (0.0-1.3); Monocytes % 8.1 %; Neutrophils # 7.3 K/mcL (1.6-8.9); Platelet Count 215 K/mcL (140-400); Red Blood Count 4.25 M/mcL (4.19-5.50); Red Cell Distribution Width 13.4 % (11.5-14.5); Segmented Neutrophils % 69.6 %
[2016-04-10 17:59] LABS: Prothrombin Time 10.8 Seconds (9.4-12.1)
[2016-04-10 18:02] LABS: Activated Partial Thrombo Time 30.7 Seconds (26.0-36.0)
[2016-04-10 18:06] LABS: BUN/Creatinine Ratio 16 (6-26); Blood Urea Nitrogen 18 mg/dL (8-26); Calcium 9.4 mg/dL (8.6-10.8); Carbon Dioxide 24 mEq/L (19-29); Chloride 102 mEq/L (98-109); Glucose 114 mg/dL (70-99); Osmolality,Calculated 285 (280-300); Potassium 3.8 mEq/L (3.5-4.5); Sodium 136 mEq/L (136-145); eGFR For African Americans > 60 (> 60); eGFR For Non-African Americans > 60 (> 60)
[2016-04-12 05:44] LABS: Basophils % 0.5 %; Eosinophils # 0.3 K/mcL (0.0-0.6); Eosinophils % 3.2 %; Hematocrit 36.7 % (37.5-50.1); Hemoglobin 12.7 g/dL (12.9-16.9); Immature Granulocytes % 0.3 % (0-4); Lymphocytes # 2.4 K/mcL (0.6-4.6); Lymphocytes % 30.6 %; Mean Corpuscular HGB Conc 34.6 g/dL (31.6-35.5); Mean Corpuscular Hemoglobin 30.5 pg (28.0-33.3); Mean Platelet Volume 9.8 fL (9.4-12.4); Monocytes # 0.7 K/mcL (0.0-1.3); Monocytes % 9.4 %; Neutrophils # 4.3 K/mcL (1.6-8.9); Platelet Count 204 K/mcL (140-400); Red Blood Count 4.17 M/mcL (4.19-5.50); Red Cell Distribution Width 13.2 % (11.5-14.5)
[2016-04-12 05:58] LABS: BUN/Creatinine Ratio 18 (6-26); Blood Urea Nitrogen 17 mg/dL (8-26); Calcium 9.1 mg/dL (8.6-10.8); Carbon Dioxide 25 mEq/L (19-29); Chloride 106 mEq/L (98-109); Glucose 96 mg/dL (70-99); Magnesium 1.7 mg/dL (1.6-2.6); Osmolality,Calculated 289 (280-300); Phosphorous 3.1 mg/dL (2.3-4.7); Potassium 3.8 mEq/L (3.5-4.5); Sodium 139 mEq/L (136-145); eGFR For African Americans > 60 (> 60); eGFR For Non-African Americans > 60 (> 60)
[2016-04-12 09:27] VITALS: BP 154/88
== END 2016-04-12 15:00 | disposition home or self-care (01) | DRG 66 ==
LOC: 3BNU 16:54 → EMEROO 16:54 → 3BNU 19:10 → SUATTDRO 23:17
PROVIDERS: ADMIT Internal Medicine; ATTEND Internal Medicine

== ENCOUNTER 2017-05-07 12:51 | Inpatient (IN) ==
--- NOTE | 2017-05-07 13:04 | Emergency Department Note ---
Disposition Clinical Impression: Altered mental status, unspecified Qualifiers: Altered mental status type: unspecified Qualified Code(s): R41.82 - Altered mental status, unspecified Disposition: Admitted As Inpatient [facility] Provider[facility] - Time of Disposition: 14:54 Altered Mental Status HPI - General Stated Complaint: Stroke like symptoms Time Seen by Provider: 05/07/17 12:53 Source: patient, family, EMS Mode of arrival: EMS Limitations: no limitations Nursing Notes Reviewed: Yes Vital Signs Reviewed: Yes - History of Present Illness HPI Narrative: Patient presents as a transfer from the [facility]. The daughter found him with increased confusion this morning. The patient denies having symptoms other than headache. The patient normally calls someone routinely at 8 AM but this morning did not make that phone call which prompted the family to check on the patient. He states he could not remember his friend's phone number. Again he denies symptoms. The daughter thinks he has a facial droop and is increasingly confused. 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 MD complaint: confusion Onset (ago): hour(s) Timing confirmed by: family member Consistency of Symptoms: waxing and waning Context: history of similar presentation Associated symptoms: Reports: headaches Treatments prior to arrival: other (Was seen at the [facility]) - Related Data Home Medications Medication Instructions Recorded Confirmed Albuterol Sulfate [Albuterol 2 puff IH Q6H PRN 04/09/16 01/17/17 Inhaler] Fluticasone Propionate Nasal 100 mcg NS BID 04/09/16 01/17/17 [Flonase] Ketoconazole 2% CRM [Nizoral Cream] 1 appl TP DAILY 04/09/16 01/17/17 Lisinopril [Zestril] 5 mg PO DAILY 04/09/16 01/17/17 Propylene Glycol/Peg 400 [Systane 1 drop BOTH EYES QID 04/09/16 01/17/17 0.3-0.4% Eye Drops] Tamsulosin [Flomax] 0.4 mg PO HS 04/09/16 01/17/17 hydroCHLOROthiazide 25 mg PO DAILY 04/09/16 01/17/17 [Hydrochlorothiazide] Oxycodone HCl/Acetaminophen 1 each PO TID PRN 04/12/16 01/17/17 [Percocet 5-325 mg Tablet] Albuterol Neb [Proventil Neb] 2.5 mg IH Q8H 01/17/17 01/17/17 Atorvastatin [Lipitor] 10 mg PO HS 01/17/17 01/17/17 Budesonide/Formoterol 160/4.5 2 puff IH BIDR 01/17/17 01/17/17 [Symbicort 160/4.5] Diclofenac Sodium [Voltaren] 2 gm TP BID 01/17/17 01/17/17 Finasteride [Proscar] 5 mg PO DAILY 01/17/17 01/17/17 Pantoprazole Sodium [Protonix] 40 mg PO DAILY 01/17/17 01/17/17 Simethicone [Gas-X] 160 mg PO TIDAC 01/17/17 01/17/17 Tiotropium [place] [Spiriva 2 puff IH 1400 01/17/17 01/17/17 Respimat] Previous Rx's Medication Instructions Recorded Aspirin Enteric Coated [Aspirin EC] 81 mg PO DAILY #30 tablet. 04/12/16 Clopidogrel Bisulfate [Plavix] 75 mg PO DAILY #30 tablet 04/12/16 Allergies Allergy/AdvReac Type Severity Reaction Status Date / Time carbamazepine AdvReac Hives Verified 01/17/17 11:42 niacin AdvReac Hives Verified 01/17/17 11:42 All systems ED: reviewed and negative except as stated. Constitutional: Reports: as per HPI Eyes: Reports: as per HPI ENT ED: Reports: as per HPI Cardiovascular: Reports: as per HPI Respiratory: Reports: as per HPI Gastrointestinal: Reports: as per HPI Genitourinary: Reports: as per HPI Musculoskeletal: Reports: as per HPI Integumentary: Reports: as per HPI Neurological: Reports: headache, confusion, abnormal gait, other (Facial droop) Psychiatric: Reports: as per HPI Endocrine: Reports: as per HPI Hematological/Lymphatic: Reports: as per HPI Allergic/Immunologic: Reports: as per HPI Past Medical History - Past Medical History Source: patient, old records reviewed Medical history: Reports: arthritis, cancer, COPD, coronary artery disease, hyperlipidemia, hypertension, TIA Surgical history: Reports: appendectomy, cholecystectomy Psychiatric history: Reports: no psych history - Social History Smoking Status: Current every day smoker Smokeless Tobacco Status: No Alcohol use: Reports: none Drug use: Reports: none Physical Exam - General Limitations: no limitations - Head Head exam: atraumatic - Eye Eye exam: Present: normal appearance, PERRL - ENT ENT exam: normal exam - Neck Neck exam: Present: normal inspection, full ROM - Chest Chest inspection: Present: normal inspection, symmetric chest wall rise - Respiratory Respiratory exam: Present: normal lung sounds bilaterally - Cardiovascular Cardiovascular exam: Present: regular rate, normal rhythm, normal heart sounds - Rectal Exam Rectal exam: Present: deferred - Extremities Exam Extremities exam: Present: normal inspection - Neurological Exam Neurological exam: Present: alert, oriented X3, CN II-XII intact, other (Speech fluent. Left-sided facial droop. No pronator drift. No leg drift) - Psychiatric Psychiatric exam: Present: flat affect - Skin Skin exam: Present: warm, dry, intact Course Course Narrative: Patient presents with intermittent confusion. Objectively the only neurologic finding is a mild left-sided facial droop. He is alert and oriented to person place and time. He knows his daughter's name. Confusion workup including CT head initiated - Reevaluation(s) Reevaluation #1: NIH 2 Reevaluation #2: I will request admission to the medicine service Vital Signs Temperature 97.1 F L 05/07/17 12:56 Pulse Rate 66 05/07/17 12:56 Respiratory Rate 27 05/07/17 12:56 Blood Pressure 168/83 05/07/17 12:56 O2 Sat by Pulse Oximetry 99 05/07/17 12:56 Temperature 97.1 F L 05/07/17 12:56 Pulse Rate 70 05/07/17 14:29 Respiratory Rate 15 05/07/17 14:29 Blood Pressure 187/87 05/07/17 14:29 O2 Sat by Pulse Oximetry 98 05/07/17 14:29 Oxygen Delivery Oxygen Delivery Nasal Cannula Altered Mental Status - Medical Records Medical records reviewed: Yes I reviewed the patient's medical records. - Lab Data Lab results reviewed: Yes I reviewed the patient's lab results. Result diagrams: 05/07/17 14:12 Lab Results 05/07/17 05/07/17 05/07/17 Range/Units 11:31 12:56 13:30 WBC (4.3-11.1) K/mcL RBC (4.19-5.50) M/mcL Hgb (12.9-16.9) g/dL Hct (37.5-50.1) % MCV (83.0-100.0) fL MCH (28.0-33.3) pg MCHC (31.6-35.5) g/dL RDW (11.5-14.5) % Plt Count (140-400) K/mcL MPV (9.4-12.4) fL Immature Gran % (0-4) % Seg Neutrophils % % Lymphocytes % % Monocytes % % Eosinophils % % Basophils % % Neutrophils # (1.6-8.9) K/mcL Lymphocytes # (0.6-4.6) K/mcL Monocytes # (0.0-1.3) K/mcL Eosinophils # (0.0-0.6) K/mcL Basophils # (0.0-0.2) K/mcL PT 10.6 (9.4-12.1) Seconds INR 1.0 APTT 30.7 (26.0-36.0) Seconds POC Glucose 97 H (58-89) Troponin I (< 0.04) ng/mL Urine Color Yellow (Yellow) Urine Clarity Clear (Clear) Urine pH 6.5 (5.0-8.0) pH Units Ur Specific [place] 1.020 (1.010-1.025) Urine Protein Negative (Neg-Trace) mg/dL Urine Glucose (UA) Normal (Normal) mg/dL Urine Ketones Negative (Negative) mg/dL Urine Blood Negative (Negative) Urine Nitrite Negative (Negative) Urine Bilirubin Negative (Negative) Urine Urobilinogen Normal (Normal) mg/dL Ur Leukocyte Esterase Negative (Negative) Ur Culture Indicated? NO (NO) Specimen Rejected 05/07/17 05/07/17 05/07/17 Range/Units 13:30 13:30 14:12 WBC 10.8 (4.3-11.1) K/mcL RBC 4.39 (4.19-5.50) M/mcL Hgb 13.2 (12.9-16.9) g/dL Hct 38.7 (37.5-50.1) % MCV 88.2 (83.0-100.0) fL MCH 30.1 (28.0-33.3) pg MCHC 34.1 (31.6-35.5) g/dL RDW 13.8 (11.5-14.5) % Plt Count 211 (140-400) K/mcL MPV 9.2 L (9.4-12.4) fL Immature Gran % 0.4 (0-4) % Seg Neutrophils % 67.7 % Lymphocytes % 21.6 % Monocytes % 7.8 % Eosinophils % 2.1 % Basophils % 0.4 % Neutrophils # 7.3 (1.6-8.9) K/mcL Lymphocytes # 2.3 (0.6-4.6) K/mcL Monocytes # 0.9 (0.0-1.3) K/mcL Eosinophils # 0.2 (0.0-0.6) K/mcL Basophils # 0.0 (0.0-0.2) K/mcL PT (9.4-12.1) Seconds INR APTT (26.0-36.0) Seconds POC Glucose (58-89) Troponin I < 0.03 (< 0.04) ng/mL Urine Color (Yellow) Urine Clarity (Clear) Urine pH (5.0-8.0) pH Units Ur Specific [place] (1.010-1.025) Urine Protein (Neg-Trace) mg/dL Urine Glucose (UA) (Normal) mg/dL Urine Ketones (Negative) mg/dL Urine Blood (Negative) Urine Nitrite (Negative) Urine Bilirubin (Negative) Urine Urobilinogen (Normal) mg/dL Ur Leukocyte Esterase (Negative) Ur Culture Indicated? (NO) Specimen Rejected Clotted - Radiology Data Radiology results reviewed: Yes I reviewed the patient's radiology results. - EKG Data EKG attestation: Yes I reviewed and interpreted this EKG. EKG results narrative: Normal sinus rhythm rate 71 MO 167 QRS 83 QT/QTC 358/381. No acute ST segment elevation. Sinus arrhythmia identified TPA Checklist - Eligibilty for IV tPA 1. LKW equal to or less than 4.5 hours be before treatment: No - LKW: 3-4.5 hrs Add. Warnings/Precautions Patient/family understanding: The patient/family members have been counseled and understood the risk, benefit , and alternatives of treatment.
[2017-05-07 13:27] LABS: Bilirubin,Urine Negative (Negative); Blood,Urine Negative (Negative); Clarity,Urine Clear (Clear); Color,Urine Yellow (Yellow); Glucose,Urine (UA) Normal (Normal); Ketones,Urine Negative (Negative); Leukocyte Esterase,Urine Negative (Negative); Nitrite,Urine Negative (Negative); PH,Urine 6.5 pH Units (5.0-8.0); Protein,Urine Negative (Neg-Trace); Urobilinogen,Urine Normal (Normal)
[2017-05-07 13:46] LABS: Prothrombin Time 10.6 Seconds (9.4-12.1)
[2017-05-07 13:49] LABS: Activated Partial Thrombo Time 30.7 Seconds (26.0-36.0)
[2017-05-07 14:08] LABS: Troponin I < 0.03 ng/mL (< 0.04)
[2017-05-07 14:25] LABS: Basophils % 0.4 %; Eosinophils # 0.2 K/mcL (0.0-0.6); Eosinophils % 2.1 %; Hematocrit 38.7 % (37.5-50.1); Hemoglobin 13.2 g/dL (12.9-16.9); Immature Granulocytes % 0.4 % (0-4); Lymphocytes # 2.3 K/mcL (0.6-4.6); Lymphocytes % 21.6 %; Mean Corpuscular HGB Conc 34.1 g/dL (31.6-35.5); Mean Corpuscular Hemoglobin 30.1 pg (28.0-33.3); Mean Corpuscular Volume 88.2 fL (83.0-100.0); Mean Platelet Volume 9.2 fL (9.4-12.4); Monocytes # 0.9 K/mcL (0.0-1.3); Monocytes % 7.8 %; Neutrophils # 7.3 K/mcL (1.6-8.9); Platelet Count 211 K/mcL (140-400); Red Blood Count 4.39 M/mcL (4.19-5.50); Red Cell Distribution Width 13.8 % (11.5-14.5); Segmented Neutrophils % 67.7 %
[2017-05-07 14:59] LABS: Alanine Aminotransferase 8 Units/L (7-52); Albumin 4.3 g/dL (3.5-5.7); Albumin/Globulin Ratio 1.7 (1.1-2.2); Alkaline Phosphatase 75 Units/L (34-104); Aspartate Amino Transferase 15 Units/L (13-39); BUN/Creatinine Ratio 16 (6-26); Bilirubin,Direct 0.1 mg/dL (0.0-0.2); Bilirubin,Indirect 0.4 mg/dL (0.0-1.2); Bilirubin,Total 0.5 mg/dL (0.3-1.0); Blood Urea Nitrogen 16 mg/dL (8-23); Calcium 10.1 mg/dL (8.6-10.3); Carbon Dioxide 24 mEq/L (23-29); Chloride 102 mEq/L (98-107); Globulin 2.5 g/dL (2.4-3.5); Glucose 100 mg/dL (70-105); Osmolality,Calculated 283 (280-300); Sodium 136 mEq/L (136-145); Total Protein 6.8 g/dL (6.4-8.9); eGFR For African Americans > 60 (> 60); eGFR For Non-African Americans > 60 (> 60)
[2017-05-07] MEDS ORDERED: Aspirin 325 MG TABLET PO ONE (15:01)
[2017-05-07] MEDS ORDERED: Naloxone 0.4 MG/ML INJ IVP PRN (15:56)
[2017-05-07] MEDS ORDERED: *HR* OxyCODONE/APAP 5/325 TABLET PO PRN (15:57)
[2017-05-07] MEDS ORDERED: Azithromycin 250 MG TABLET PO ONE (15:59)
--- NOTE | 2017-05-07 16:12 | Internal Med History&Physical ---
Date of Encounter: 05/07/17 Time of Encounter: 16:06 Assessment and Plan (1) TIA (transient ischemic attack) Current visit: Yes Status: Suspected Suspected Patient with multiple prior infarcts from 2017 No recent neurological deficits, except for a facial droop that patient states is chronic We will obtain a Brain MRI Prior neck CTA showed moderate ICA stenosis, repeat doppler of the carotids ECHO from 2017 poor study, repeat ECHO Continue home doses of ASA, Plavix, Lipitor PTOT eval not necessary as patient ia mobile with no deficits at this time continue neuro checks Qualifiers: Transient cerebral ischemia type: other Qualified Code(s): G45.8 - Other transient cerebral ischemic attacks and related syndromes (2) Encephalopathy acute Current visit: Yes Status: Resolved resolved Patient is AAOX3 It might be due to TIA Continue to monitor High risk of delirium due to age (3) DVT prophylaxis Current visit: Yes Status: Acute Heparin SQ (4) BPH (benign prostatic hyperplasia) Current visit: Yes Status: Chronic tamsulosin po Qualifiers: Lower urinary tract symptom presence: unspecified whether lower urinary tract symptoms present Qualified Code(s): N40.0 - Benign prostatic hyperplasia without lower urinary tract symptoms (5) CAD (coronary artery disease) Current visit: Yes Status: Chronic chronic, stable, continue home meds Qualifiers: Coronary Disease-Associated Artery/Lesion type: [place] artery [place] vs. transplanted heart: [place] heart Associated angina: angina presence unspecified Qualified Code(s): I25.10 - Atherosclerotic heart disease of [place] coronary artery without angina pectoris (6) COPD (chronic obstructive pulmonary disease) Current visit: Yes Status: Acute patient with wheezing and worsening cough Known COPD Will give prednisone and zithromax for 5 days Duonebs q4hr Continue to monitor CXR has no infiltrates Qualifiers: COPD type: COPD with acute exacerbation Qualified Code(s): J44.1 - Chronic obstructive pulmonary disease with (acute) exacerbation (7) Hyperlipidemia Current visit: Yes Status: Chronic continue home doses of lipitor Qualifiers: Hyperlipidemia type: mixed hyperlipidemia Qualified Code(s): E78.2 - Mixed hyperlipidemia (8) Hypertension Current visit: Yes Status: Chronic Blood pressure elevated 170-180/100-107, will allow permissive HTN Resume home meds Qualifiers: Hypertension type: essential hypertension Qualified Code(s): I10 - Essential (primary) hypertension Internal Medicine - H&P: HPI Chief complaint: Confusion Admitted From: Home Plans for Post Hospital Care: Home History of present illness: Mr. Schwartz is a 86 year old male with PMH of prior CVA with no neurological deficits, HLD, former smoker, who quit 2 months ago, COPD, uses nocturnal O2, who was brought in by family for altered mental status, patient at time of review was awake, and alert, oriented X3 but was unable to state why he was brought in. Per family/ER physician, patient resides home alone and usually calls a friend to say how he is daily every morning, he did not make that call this morning and when his family got to his home, patient was said to have been altered. Last well-known time is unknown. The patient's only complain is of a frontal headache, said to be throbbing and present throughout the day He does have a facial droop with Left facial weakness and when i asked if this was new to him he states "its been there a couple of months" He denies speech difficulty, focal weakness, blurry vision, chest pain, n/v/d, fever or chills. He does complain of shortness of breath that worsened this morning, despite using his breathing treatment. He denies sick contacts, no recent travels. He has no neck stiffness. No changes observed in bowel or urinary habits. Work up in the ER is unremarkable Past Med Surg Social Fam HX - Past Medical History Medical history: arthritis, cancer, COPD, coronary artery disease, CVA, hyperlipidemia, hypertension Psychiatric history: no psych history - Past Surgical History Surgical History: appendectomy, cholecystectomy - Social History Smoking Status: Current every day smoker Smokeless Tobacco Status: No Alcohol use: none Drug use: none - Family History Father Family Member Ethnicity: Non- Living Status: Hx Family Cardiac Disorders: No Hx Family Respiratory Disorders: No Hx Family Cancer: Yes (Lung) Hx Family Endocrine Disorder: No Mother Family Member Ethnicity: Non- Living Status: Brother Family Member Ethnicity: Non- Living Status: Still Living Hx Family Cardiac Disorders: Yes ([place], stroke) Sister Family Member Ethnicity: Non- Living Status: Still Living Internal Medicine - H&P: Meds Albuterol Sulfate [Albuterol Inhaler] 2 puff IH Q6H PRN 04/09/16 [History] Fluticasone Propionate Nasal [Flonase] 100 mcg NS BID 04/09/16 [History] Ketoconazole 2% CRM [Nizoral Cream] 1 appl TP DAILY 04/09/16 [History] Lisinopril [Zestril] 5 mg PO DAILY 04/09/16 [History] Tamsulosin [Flomax] 0.8 mg PO HS 04/09/16 [History] hydroCHLOROthiazide [Hydrochlorothiazide] 25 mg PO DAILY 04/09/16 [History] Aspirin Enteric Coated [Aspirin EC] 81 mg PO DAILY #30 tablet. 04/12/16 [Rx] Clopidogrel Bisulfate [Plavix] 75 mg PO DAILY #30 tablet 04/12/16 [Rx] Oxycodone HCl/Acetaminophen [Percocet 5-325 mg Tablet] 1 each PO TID PRN [History] Albuterol Neb [Proventil Neb] 2.5 mg IH Q8H 01/17/17 [History] Budesonide/Formoterol 160/4.5 [Symbicort 160/4.5] 2 puff IH BIDR 01/17/17 [ History] Finasteride [Proscar] 5 mg PO DAILY 01/17/17 [History] Pantoprazole Sodium [Protonix] 40 mg PO DAILY 01/17/17 [History] Tiotropium [place] [Spiriva Respimat] 2 puff IH 1400 01/17/17 [History] Atorvastatin Calcium [Lipitor] 20 mg PO HS 05/07/17 [History] Cholecalciferol (Vitamin D3) [Vitamin D] 50,000 unit PO QWEEK 05/07/17 [History] 3 Allergy/AdvReac Type Severity Reaction Status Date / Time carbamazepine AdvReac Hives Verified 01/17/17 11:42 niacin AdvReac Hives Verified 01/17/17 11:42 All Systems PM: A 10-system review of systems was performed and is negative for pertinent findings except as documented above in the HPI. - Constitutional Constitutional: no chills, no fever(s), no night sweats - EENT Eyes: no change in vision, no discharge, no pain, no photophobia Nose, mouth and throat: no dysphagia, no nasal discharge, no neck pain, no sore throat - Cardiovascular Cardiovascular ROS IM: as per HPI - Respiratory Respiratory: as per HPI - Gastrointestinal Gastrointestinal: as per HPI - Musculoskeletal Musculoskeletal ROS IM: as per HPI - Neurological Neurological ROS: as per HPI - Hematologic/Lymphatic Hematologic/Lymphatic: as per HPI - Constitutional Vitals: Temp Pulse Resp BP Pulse Ox 97.1 F L 70 15 187/87 98 05/07/17 12:56 05/07/17 14:29 05/07/17 14:29 05/07/17 14:29 05/07/17 14:29 General appearance: Present: A&O X 3, pleasant, no acute distress - Head Head exam: Present: atraumatic, normocephalic - Eye Eye exam: Present: PERRL, conjuntiva pink, sclera anicteric Pupils: Present: PERRL - Neck Neck exam general surgery: Present: supple, trachea midline. Absent: lymphadenopathy - Respiratory Respiratory exam: Present: decreased breath sounds (diminshed air entry bilaterally, few scattered expiratory wheezes) - Cardiovascular Cardiovascular exam: Present: RRR, +S1, +S2. Absent: diastolic murmur, gallop, rubs, systolic murmur - GI/Abdominal GI/Abdominal exam: Present: normal bowel sounds, soft, no peritoneal signs. Absent: distended, tenderness - Extremities Exam Extremities exam: Present: warm, radial pulses palpable and symmetrical. Absent : calf tenderness, cyanotic, pedal edema - Neurological Exam Neurological exam: Present: alert, oriented X3, strengths equal and symetr throughout, facial droop. Absent: pronater drift, speech deficit - Skin Skin exam: Present: dry, intact Internal Med - H&P Results - Labs CBC & Chem 7: 05/07/17 14:12 05/07/17 13:30 Labs: Short CBC 05/07/17 Range/Units 14:12 WBC 10.8 (4.3-11.1) K/mcL Hgb 13.2 (12.9-16.9) g/dL Hct 38.7 (37.5-50.1) % Plt Count 211 (140-400) K/mcL Neutrophils # 7.3 (1.6-8.9) K/mcL BMP 05/07/17 13:30 Sodium 136 Potassium 4.0 Chloride 102 Carbon Dioxide 24 BUN 16 Creatinine 0.98 Glucose 100 Calcium 10.1 Cardiac Enzymes 05/07/17 Range/Units 13:30 Troponin I < 0.03 (< 0.04) ng/mL Liver Function 05/07/17 Range/Units 13:30 Total Bilirubin 0.5 (0.3-1.0) mg/dL Direct Bilirubin 0.1 (0.0-0.2) mg/dL AST 15 (13-39) Units/L ALT 8 (7-52) Units/L Alkaline Phosphatase 75 (34-104) Units/L Albumin 4.3 (3.5-5.7) g/dL Urine 05/07/17 Range/Units 11:31 Urine Color Yellow (Yellow) Urine Clarity Clear (Clear) Urine pH 6.5 (5.0-8.0) pH Units Ur Specific [place] 1.020 (1.010-1.025) Urine Protein Negative (Neg-Trace) mg/dL Urine Glucose (UA) Normal (Normal) mg/dL - Impressions ITS Impressions Head CT 05/07/17 12:58 IMPRESSION: No acute intracranial abnormality. Stable senescent changes including atrophy and chronic microvascular change. D/ / Stephanie Reynoso MD / Stephanie Reynoso MD Interpreting Provider: Stephanie Reynoso MD Chest X-Ray 05/07/17 13:00 IMPRESSION: No acute cardiopulmonary process identified. D/ / Jerome Pal MD / Jerome Pal MD Interpreting Provider: Jerome Pal MD
[2017-05-07] MEDS ORDERED: Acetaminophen 325 MG TABLET PO ONE (16:38)
[2017-05-07] MEDS: Ipratropium/Albuterol Neb 3 ML IH SCH ×3 (17:35→23:35)
[2017-05-07] MEDS: predniSONE 20 MG TABLET PO ONE (17:59)
[2017-05-07] MEDS: *HR* Heparin 5,000 UNIT/ML VIAL SQ SCH (21:09)
[2017-05-07] MEDS: Fluticasone Propionate Nasal 50 MCG/SPRAY BOTTLE NS SCH (21:09)
[2017-05-08] MEDS: Ipratropium/Albuterol Neb 3 ML IH SCH ×2 (04:14→07:40)
[2017-05-08] MEDS: *HR* Heparin 5,000 UNIT/ML VIAL SQ SCH ×3 (05:41→21:55)
[2017-05-08 06:41] LABS: Basophils % 0.2 %; Eosinophils % 0.1 %; Hematocrit 35.7 % (37.5-50.1); Hemoglobin 12.3 g/dL (12.9-16.9); Immature Granulocytes % 0.7 % (0-4); Lymphocytes # 1.8 K/mcL (0.6-4.6); Lymphocytes % 18.6 %; Mean Corpuscular HGB Conc 34.5 g/dL (31.6-35.5); Mean Corpuscular Hemoglobin 29.5 pg (28.0-33.3); Mean Corpuscular Volume 85.6 fL (83.0-100.0); Mean Platelet Volume 9.1 fL (9.4-12.4); Monocytes # 0.4 K/mcL (0.0-1.3); Monocytes % 4.7 %; Neutrophils # 7.1 K/mcL (1.6-8.9); Platelet Count 211 K/mcL (140-400); Red Blood Count 4.17 M/mcL (4.19-5.50); Red Cell Distribution Width 13.7 % (11.5-14.5); Segmented Neutrophils % 75.7 %
[2017-05-08 06:51] LABS: BUN/Creatinine Ratio 18 (6-26); Blood Urea Nitrogen 17 mg/dL (8-23); Calcium 9.6 mg/dL (8.6-10.3); Carbon Dioxide 25 mEq/L (23-29); Chloride 104 mEq/L (98-107); Chol/HDL Ratio 2.4 (0-4.9); Cholesterol 148 mg/dL (< 200); Glucose 130 mg/dL (70-105); HDL Cholesterol 62 mg/dL (40-59); LDL Cholesterol,Calculated 69 mg/dL (0-99); Osmolality,Calculated 287 (280-300); Potassium 4.1 mEq/L (3.5-5.1); Sodium 137 mEq/L (136-145); Triglycerides 85 mg/dL (< 150); eGFR For African Americans > 60 (> 60); eGFR For Non-African Americans > 60 (> 60)
--- NOTE | 2017-05-08 08:12 | Internal Med Progress Note ---
<Jose Harding - Last Filed: 05/08/17 09:41> Date of Encounter: 05/08/17 Time of Encounter: 09:42 - Assessment and plan (1) CVA (cerebral vascular accident) Current Visit: Yes Status: Acute Assessment and plan: MRI: Several small foci of acute infarction within the left parietal lobe. Stable moderate chronic small vessel ischemic disease within the periventricular white matter with associated cerebral atrophy. Old left basal ganglionic lacunes. No new neurological deficits noted on exam. Repeat echocardiogram pending. PT/OT evaluation pending. Carotid Doppler preliminary study shows nonstenotic plaque on right side and left carotid stenosis of 40-59%. Continue aspirin, Plavix, statin. Qualifiers: CVA mechanism: unspecified Qualified Code(s): I63.9 - Cerebral infarction, unspecified (2) BPH (benign prostatic hyperplasia) Current Visit: Yes Status: Chronic Assessment and plan: Controlled. Continue Flomax Qualifiers: Lower urinary tract symptom presence: unspecified whether lower urinary tract symptoms present Qualified Code(s): N40.0 - Benign prostatic hyperplasia without lower urinary tract symptoms (3) CAD (coronary artery disease) Current Visit: Yes Status: Chronic Assessment and plan: Control. Continue aspirin, statin, Plavix Qualifiers: Coronary Disease-Associated Artery/Lesion type: [place] artery [place] vs. transplanted heart: [place] heart Associated angina: angina presence unspecified Qualified Code(s): I25.10 - Atherosclerotic heart disease of [place] coronary artery without angina pectoris (4) COPD (chronic obstructive pulmonary disease) Current Visit: Yes Status: Chronic Assessment and plan: Continue steroids, antibiotics. Patient is not using nebulizer treatments. He is refusing them. Restarting home Spiriva and Symbicort inhalers. Qualifiers: COPD type: COPD with acute exacerbation Qualified Code(s): J44.1 - Chronic obstructive pulmonary disease with (acute) exacerbation (5) Hyperlipidemia Current Visit: Yes Status: Chronic Assessment and plan: Controlled continue home medication. Qualifiers: Hyperlipidemia type: mixed hyperlipidemia Qualified Code(s): E78.2 - Mixed hyperlipidemia (6) Hypertension Current Visit: Yes Status: Chronic Assessment and plan: 158/72 Due to recent CVA we will allow permissive HTN. Qualifiers: Hypertension type: essential hypertension Qualified Code(s): I10 - Essential (primary) hypertension (7) Tobacco use disorder Current Visit: Yes Status: Chronic Assessment and plan: reports quit smoking 2 months ago. congratulated patient. - Subjective Interval history: Patient awake and alert and oriented 3 this morning. He has no complaints. No acute events overnight. He denies headache, blurry vision, chest pain, palpitations, shortness of breath, cough, abdominal pain, lower extremity pain. Patient has a chronic left facial droop. She denies difficulty swallowing. He denies numbness and tingling. He denies weakness. - Constitutional Vitals: Temp Pulse Resp BP Pulse Ox 97.7 F 75 16 158/72 93 05/08/17 06:55 05/08/17 06:55 05/08/17 06:55 05/08/17 06:55 05/08/17 06:55 General appearance: Present: A&O X 3, pleasant, no acute distress - Other Additional findings: General: plesant without distress HEENT: Head atraumatic, normocephalic, EOMI, PERRL, neck nontender to palpation , absent lymphadenopathy, Moist Mucous Membranes, Heart: Regular rate and rhythm with no murmur Lungs: Clear to auscultation bilaterally Abdomen: Soft nontender, distended positive bowel sounds Skin: warm and dry Extremities: Absent pedal edema, Neuro: Cranial nerves II through XII intact except for left cranial nerve VII, UE and LE sensation equal bilaterally, UE and LE strength 5/5, alert oriented 3 , Heel to toth intact, finger to nose intact, b/l plantar reflexes downwards Vascular: Pedal and radial pulses 2 out of 4 Internal Medicine: Result - Labs CBC & Chem 7: 05/08/17 06:20 05/08/17 06:20 Labs: Short CBC 05/08/17 Range/Units 06:20 WBC 9.4 (4.3-11.1) K/mcL Hgb 12.3 L (12.9-16.9) g/dL Hct 35.7 L (37.5-50.1) % Plt Count 211 (140-400) K/mcL Neutrophils # 7.1 (1.6-8.9) K/mcL BMP 05/08/17 06:20 Sodium 137 Potassium 4.1 Chloride 104 Carbon Dioxide 25 BUN 17 Creatinine 0.94 Glucose 130 H Calcium 9.6 - ABG Interpretation ABG results: PT/INR, D-dimer PT 10.6 Seconds (9.4-12.1) 05/07/17 13:30 Consult Discharge Plan - Plan [facility]errals: [facility] Care Provider[facility] - <Reji Patterson - Last Filed: 05/08/17 15:36> Date of Encounter: 05/08/17 - Constitutional Vitals: Temp Pulse Resp BP Pulse Ox 97.9 F 74 18 136/73 95 05/08/17 10:59 05/08/17 10:59 05/08/17 11:11 05/08/17 10:59 05/08/17 11:11 Internal Medicine: Result - Labs CBC & Chem 7: 05/08/17 06:20 05/08/17 06:20 Labs: Short CBC 05/08/17 Range/Units 06:20 WBC 9.4 (4.3-11.1) K/mcL Hgb 12.3 L (12.9-16.9) g/dL Hct 35.7 L (37.5-50.1) % Plt Count 211 (140-400) K/mcL Neutrophils # 7.1 (1.6-8.9) K/mcL BMP 05/08/17 06:20 Sodium 137 Potassium 4.1 Chloride 104 Carbon Dioxide 25 BUN 17 Creatinine 0.94 Glucose 130 H Calcium 9.6 - ABG Interpretation ABG results: PT/INR, D-dimer PT 10.6 Seconds (9.4-12.1) 05/07/17 13:30 - Impressions Impressions Echocardiogram Limited Views 05/08/17 16:00 Impressions: LVEF 55-60%. No evidence of PFO with agitated saline contrast. Left Ventricular Wall Motion: Rest Echo Findings All wall segments showed normal motion. Findings: Study Quality * Technically adequate exam. ECG Findings * Normal sinus rhythm. Left Ventricle * LVEF 55-60%. * Normal LV size and wall thickness. Right Ventricle * RV is not well evaluated. Aorta * Normally sized aortic root. Pericardium * There is no pericardial effusion present. Interatrial Septum * No evidence of PFO with agitated saline contrast. IVC * Normal IVC dimensions and inspiratory collapse. - Attending Attestation I performed a yawk-ri-[id number] diagnostic evaluation of this patient and my medical decision-making was reviewed with the Resident Physician, Dr Jose Harding. I agree with the documented findings, disposition and treatment plan as described except to the extent set forth below. Patient denies headache vision loss and confusion at this time. Physical exam reveals mild left facial droop otherwise no motor neurodeficit. MRI reveals punctate areas of acute infarct. He has recurrent CVA. Prior workup was negative. He is on aspirin and Plavix. We will consult neurology. Mr. Schwartz will be admitted as inpatient for workup and treatment of acute ischemic stroke. For past medical history family history social history and review of systems please refer to the original H&P dictated this facility yesterday. There are no changes or updates. Family history was reviewed and noncontributory due to the patient's advanced age. Reji Patterson MD
[2017-05-08] MEDS: Aspirin Enteric Coated 81 MG Tablet PO SCH (09:12)
[2017-05-08] MEDS: Fluticasone Propionate Nasal 50 MCG/SPRAY BOTTLE NS SCH ×2 (09:12→21:55)
[2017-05-08] MEDS: Finasteride 5 MG TABLET PO SCH (09:12)
[2017-05-08] MEDS: predniSONE 20 MG TABLET PO SCH (09:12)
[2017-05-08] MEDS: hydroCHLOROthiazide 25 MG TABLET PO SCH (09:12)
--- NOTE | 2017-05-08 09:37 | Electrocardiograph Report ---
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
[2017-05-08] MEDS ORDERED: Albuterol 2.5 MG/3 ML NEBULIZER IH PRN (09:46)
[2017-05-08] MEDS: Budesonide/Formoterol 160/4.5 MDI IH SCH ×2 (11:05→22:16)
[2017-05-08] MEDS: Tiotropium 18 MCG inhalation IH SCH (11:07)
[2017-05-08] MEDS: Ketoconazole 2% CRM 15 GM TUBE TP SCH (12:17)
[2017-05-08] MEDS ORDERED: Azithromycin 250 MG TABLET PO SCH (16:00)
[2017-05-09] MEDS: *HR* Heparin 5,000 UNIT/ML VIAL SQ SCH (05:52)
[2017-05-09 07:34] VITALS: BP 158/79
[2017-05-09] MEDS: Finasteride 5 MG TABLET PO SCH (07:49)
[2017-05-09] MEDS: hydroCHLOROthiazide 25 MG TABLET PO SCH (07:49)
[2017-05-09] MEDS: Aspirin Enteric Coated 81 MG Tablet PO SCH (07:49)
[2017-05-09] MEDS: predniSONE 20 MG TABLET PO SCH (07:49)
[2017-05-09] MEDS: Ketoconazole 2% CRM 15 GM TUBE TP SCH (07:54)
[2017-05-09] MEDS: Fluticasone Propionate Nasal 50 MCG/SPRAY BOTTLE NS SCH (07:54)
--- NOTE | 2017-05-09 10:08 | Discharge Summary ---
<Jose Harding - Last Filed: 05/09/17 10:38> - NOTES TO OUTPATIENT PROVIDER Notes to Outpatient Provider: Admitted for CVA. Patient will need follow-up with neurology, cardiology, vascular surgery. Date of Encounter: 05/09/17 Time of Encounter: 10:02 - Discharge Diagnosis (1) CVA (cerebral vascular accident) Priority: Primary Status: Acute Qualifiers: CVA mechanism: unspecified Qualified Code(s): I63.9 - Cerebral infarction, unspecified (2) BPH (benign prostatic hyperplasia) Priority: Secondary Status: Chronic Qualifiers: Lower urinary tract symptom presence: unspecified whether lower urinary tract symptoms present Qualified Code(s): N40.0 - Benign prostatic hyperplasia without lower urinary tract symptoms (3) CAD (coronary artery disease) Priority: Secondary Status: Chronic Qualifiers: Coronary Disease-Associated Artery/Lesion type: [place] artery [place] vs. transplanted heart: [place] heart Associated angina: angina presence unspecified Qualified Code(s): I25.10 - Atherosclerotic heart disease of [place] coronary artery without angina pectoris (4) COPD (chronic obstructive pulmonary disease) Priority: Secondary Status: Chronic Qualifiers: COPD type: COPD with acute exacerbation Qualified Code(s): J44.1 - Chronic obstructive pulmonary disease with (acute) exacerbation (5) Hyperlipidemia Priority: Secondary Status: Chronic Qualifiers: Hyperlipidemia type: mixed hyperlipidemia Qualified Code(s): E78.2 - Mixed hyperlipidemia (6) Hypertension Priority: Secondary Status: Chronic Qualifiers: Hypertension type: essential hypertension Qualified Code(s): I10 - Essential (primary) hypertension (7) Tobacco use disorder Priority: Secondary Status: Chronic Hospital course: Mr. Schwartz is a 86 year old male or CVA presented to [facility] with chief complaint of altered mental status noticed by his family. Patient resides home alone and usually calls friend every day in the morning however the morning of admission he did not call. Family went over to his house and noticed that he was altered. Last known normal was unknown. Patient did complain of a frontal headache with throbbing. Patient has a chronic left facial droop. Patient went CT of the head which was negative for acute changes. MRI of the head showed several small foci of acute infarction within the left parietal lobe and old left basal ganglionic lacunar's. Patient had CT of the head and neck in January 2017 which showed approximately 50% focal stenosis at the origin the left cervical internal carotid artery and 60% focal stenosis at the origin of right vertebral artery. Carotid duplex showed right carotid system nonstenotic plaque with left distal ICA with a moderate 50-50% stenosis. Chest x-ray was negative. Echocardiogram showed EF of 55-60% with no evidence of PFO. EKG was sinus rhythm with no ST-T wave changes. Patient's aspirin, statin, Plavix was continued. Neurology was consulted and recommended patient have cardiology workup for arrhythmia. Patient likely will need a loop recorder. Also patient needs follow-up with vascular surgery to evaluate for intervention of carotid stenosis. Patient will also need follow-up with neurology. Furthermore patient was treated for COPD exacerbation with steroids and antibiotics. He will receive additional 4 days of azithromycin and 3 days of steroids. He should continue his Spiriva and Symbicort inhalers at home. PT /OT evaluated patient and he does not need any skilled rehabilitation. Patient is tolerating his diet. He is ambulating independently. He will [facility] with [facility]. Tried to reach [facility] PCP to notify of the consults patient will need and left message. Awaiting response. - Time Spent with Patient Total time spent providing and/or coordinating discharge services: Greater than 30 minutes - Discharge Medications Prescriptions: Azithromycin [Zithromax] 250 mg PO Q24H #4 tablet predniSONE [PredniSONE] 40 mg PO DAILY #6 tablet Home Medications: Albuterol Sulfate [Albuterol Inhaler] 2 puff IH Q6H PRN 04/09/16 [History] Fluticasone Propionate Nasal [Flonase] 100 mcg NS BID 04/09/16 [History] Ketoconazole 2% CRM [Nizoral Cream] 1 appl TP DAILY 04/09/16 [History] Lisinopril [Zestril] 5 mg PO DAILY 04/09/16 [History] Tamsulosin [Flomax] 0.8 mg PO HS 04/09/16 [History] hydroCHLOROthiazide [Hydrochlorothiazide] 25 mg PO DAILY 04/09/16 [History] Aspirin Enteric Coated [Aspirin EC] 81 mg PO DAILY #30 tablet. 04/12/16 [Rx] Clopidogrel Bisulfate [Plavix] 75 mg PO DAILY #30 tablet 04/12/16 [Rx] Oxycodone HCl/Acetaminophen [Percocet 5-325 mg Tablet] 1 each PO TID PRN [History] Albuterol Neb [Proventil Neb] 2.5 mg IH Q8H 01/17/17 [History] Budesonide/Formoterol 160/4.5 [Symbicort 160/4.5] 2 puff IH BIDR 01/17/17 [ History] Finasteride [Proscar] 5 mg PO DAILY 01/17/17 [History] Pantoprazole Sodium [Protonix] 40 mg PO DAILY 01/17/17 [History] Tiotropium [place] [Spiriva Respimat] 2 puff IH 1400 01/17/17 [History] Atorvastatin Calcium [Lipitor] 20 mg PO HS 05/07/17 [History] Cholecalciferol (Vitamin D3) [Vitamin D3] 50,000 unit PO QWEEK 05/07/17 [History ] Azithromycin [Zithromax] 250 mg PO Q24H #4 tablet 05/09/17 [Rx] predniSONE [PredniSONE] 40 mg PO DAILY #6 tablet 05/09/17 [Rx] Allergies/Adverse Reactions: 3 Allergy/AdvReac Type Severity Reaction Status Date / Time carbamazepine AdvReac Hives Verified 01/17/17 11:42 niacin AdvReac Hives Verified 01/17/17 11:42 Date of admission: 05/08/17 11:10 Primary care physician: [facility]CP [facility] Consults: 05/08/17 11:15 Consult to Neurology [CONS] Routine Consulting Provider: Neurology [facility] Reason for Consult: CVA Call Completed: Yes Discharging clinician: Jose Harding - Constitutional Vitals: Temp Pulse Resp BP Pulse Ox 97.6 F 64 18 158/79 93 05/09/17 06:52 05/09/17 06:52 05/09/17 06:52 05/09/17 06:52 05/09/17 06:52 General appearance: Present: A&O X 3, pleasant, no acute distress - Patient Status Disposition: Home, Self-Care Condition: Good Functional capacity at discharge: independent ambulation Overall status at discharge: patient is progressing back to baseline - Discharge Instructions Instructions: Prednisone (By mouth), Azithromycin (By mouth) Follow Up With: [facility] [Primary Care Provider] - (Follow up CVA. Patient will need referral to vascular and neurology as recommended by inpatient neruology. ) Sascha Lane MD [Partnered Physician] - (CVA hospital follow up) Forms: ED Satisfaction Letter - Diet and Activity Activity: increase activity as tolerated Diet: low fat, low cholesterol, low salt diet <Reji Patterson - Last Filed: 05/09/17 18:32> Date of Encounter: 05/09/17 Hospital course: Mr. Schwartz is a 86 year old male - Time Spent with Patient Total time spent providing and/or coordinating discharge services: Date of admission: 05/08/17 11:10 Primary care physician: [facility]CP [facility] Consults: 05/08/17 11:15 Consult to Neurology [CONS] Routine Consulting Provider: Neu[facility] Reason for Consult: CVA Call Completed: Yes - Constitutional Vitals: Temp Pulse Resp BP Pulse Ox 97.6 F 64 18 158/79 93 05/09/17 06:52 05/09/17 06:52 05/09/17 06:52 05/09/17 06:52 05/09/17 06:52 - Attending Attestation I performed a [id number]-[id number] diagnostic evaluation of this patient and my medical decision-making was reviewed with the Resident Physician, Dr Jose Harding. I agree with the documented findings, disposition and treatment plan as described except to the extent set forth below. Patient reports no headache or weakness. His mental status is back to baseline. Physical exam: Gen: NAD, AAOx3 Heart: RRR, S1S2, no murmurs Lungs: CTABL Abdomen: S, NT, + bowel sounds Patient will need outpatient cardiac monitoring by Holter loop recorder. I explained this to the patient and his daughter at the bedside. I advised him to not drive for the next 48 hours and then reassess his capacity to drive based on his level of alertness and coordination. Given that he has no residual deficits he may be able to go back to driving. He will be referred to the [facility] for cardiology. I discussed the case with the neurologist who recommends continuing aspirin and Plavix. I have spent 35 minutes coordinating this discharge. Reji Patterson MD
--- NOTE | 2017-05-09 11:07 | Neurology - Consult Note ---
Date of Encounter: 05/09/17 Time of Encounter: 07:25 Assessment and Plan (1) CVA (cerebral vascular accident) Status: Acute As patient was admitted with acute symptoms but all has been resolved now MRI of the brain did shows an acute left parietal infarct without any other significant abnormalities. During the workup his echo has been negative carotid shows mild to 59% stenosis on the left. Patient had an CT angiogram of his head earlier in January and it was negative. At this time it is not clear that the this patient continued to have these infarct without any obvious source except that it might be coming from his left carotid though he did not have any critical stenosis but Perhaps it could be unstable plaque that may be the reason for his symptoms. Regardless he is asymptomatic now not focal findings on his examination. CT angiogram of the head was negative for any vasculitis of any intracranial stenosis. Suggest to continue him on antiplatelet therapy but at the same time we may need to monitor for any cardioembolic source in particularly for any cardiac arrhythmias. So far he is been normal sinus rhythm but perhaps he may need loop recorder for these infarct that he continued to have. Suggest cardiology evaluation the possibility of loop recording that could be done as an outpatient as he really wants to go home now from neurology standpoint is a stable he does not require any physical therapy or occupational therapy at this time as he did not have any significant deficit Suggest to continue on antiplatelet therapy along with statin f/u office in 3-4 weeks Qualifiers: CVA mechanism: unspecified Qualified Code(s): I63.9 - Cerebral infarction, unspecified (2) Carotid stenosis, left Status: Acute History of Present Illness HPI: Mr. Schwartz is a 86 year old male with PMH of prior CVA with no neurological deficits, HLD, former smoker, who quit 2 months ago, COPD, uses nocturnal O2, who was brought in by family for altered mental status, patient at time of review was awake, and alert, oriented X3 but was unable to state why he was brought in. patient resides home alone and usually calls a friend to say how he is daily every morning, he did not make that call this morning and when his family got to his home, Last well-known time is unknown. The patient's only complain is of a frontal headache, said to be throbbing and present throughout the day He does have a facial droop with Left facial weakness and when i asked if this was new to him he states "its been there a couple of months" He denies speech difficulty, focal weakness, blurry vision, chest pain, n/v/d, fever or chills. Work up in the ER is unremarkable And then had an MRI of the brain that shows acute infarct so now the neurology service is been consulted. Currently patient denies any weakness or any other new symptoms he seemed to be back to his baseline. According to the MRI report Several small foci of acute infarction within the left parietal lobe. Stable moderate chronic small vessel ischemic disease within the periventricular white matter with associated cerebral atrophy. Old left basal ganglionic lacunes. Past Med Surg Social Fam HX - Past Medical History Medical history: arthritis, cancer, COPD, coronary artery disease, CVA, hyperlipidemia, hypertension Psychiatric history: no psych history - Past Surgical History Surgical History: appendectomy, cholecystectomy - Social History Smoking Status: Current every day smoker Smokeless Tobacco Status: No Alcohol use: none Drug use: none - Family History Father Family Member Ethnicity: Non- Living Status: Hx Family Cardiac Disorders: No Hx Family Respiratory Disorders: No Hx Family Cancer: Yes (Lung) Hx Family Endocrine Disorder: No Mother Family Member Ethnicity: Non- Living Status: Brother Family Member Ethnicity: Non- Living Status: Still Living Hx Family Cardiac Disorders: Yes (ND, stroke) Sister Family Member Ethnicity: Non- Living Status: Still Living Medications and Allergies Albuterol Sulfate [Albuterol Inhaler] 2 puff IH Q6H PRN 04/09/16 [History] Fluticasone Propionate Nasal [Flonase] 100 mcg NS BID 04/09/16 [History] Ketoconazole 2% CRM [Nizoral Cream] 1 appl TP DAILY 04/09/16 [History] Lisinopril [Zestril] 5 mg PO DAILY 04/09/16 [History] Tamsulosin [Flomax] 0.8 mg PO HS 04/09/16 [History] hydroCHLOROthiazide [Hydrochlorothiazide] 25 mg PO DAILY 04/09/16 [History] Aspirin Enteric Coated [Aspirin EC] 81 mg PO DAILY #30 tablet. 04/12/16 [Rx] Clopidogrel Bisulfate [Plavix] 75 mg PO DAILY #30 tablet 04/12/16 [Rx] Oxycodone HCl/Acetaminophen [Percocet 5-325 mg Tablet] 1 each PO TID PRN [History] Albuterol Neb [Proventil Neb] 2.5 mg IH Q8H 01/17/17 [History] Budesonide/Formoterol 160/4.5 [Symbicort 160/4.5] 2 puff IH BIDR 01/17/17 [ History] Finasteride [Proscar] 5 mg PO DAILY 01/17/17 [History] Pantoprazole Sodium [Protonix] 40 mg PO DAILY 01/17/17 [History] Tiotropium [place] [Spiriva Respimat] 2 puff IH 1400 01/17/17 [History] Atorvastatin Calcium [Lipitor] 20 mg PO HS 05/07/17 [History] Cholecalciferol (Vitamin D3) [Vitamin D3] 50,000 unit PO QWEEK 05/07/17 [History ] Azithromycin [Zithromax] 250 mg PO Q24H #4 tablet 05/09/17 [Rx] predniSONE [PredniSONE] 40 mg PO DAILY #6 tablet 05/09/17 [Rx] 3 Allergy/AdvReac Type Severity Reaction Status Date / Time carbamazepine AdvReac Hives Verified 01/17/17 11:42 niacin AdvReac Hives Verified 01/17/17 11:42 All Systems: The remainder of the systems were reviewed and are negative Physical Examination - Vital Signs Vital Signs: Initial Vital Signs Temp Pulse Resp BP Pulse Ox 97.1 F L 66 27 168/83 99 05/07/17 12:56 05/07/17 12:56 05/07/17 12:56 05/07/17 12:56 05/07/17 12:56 - Constitutional General appearance: comfortable - Neurologic Detailed motor examination: full strength in all major muscle groups Motor examination - right side: 5/5: deltoids, biceps, triceps, wrist flexion, wrist extension, television servicer, hip flexors, tibialis Anterior, quadriceps, toe extension (EHL), plantarflexion Motor examination - left side: 5/5: deltoids, biceps, triceps, wrist flexion, wrist extension, hip flexors, television servicer, quadriceps, tibialis Anterior, toe extension (EHL), plantarflexion Detailed sensory examination: intact Reflexes: Biceps: 1+, Triceps: 1+, Brachioradialis: 1+, Patella: 1+, Achilles: 1 + Mental Status Examination: awake, alert, oriented to person, oriented to place, oriented to time, follows commands appropriately, answers questions appropriately, no agnosia, no aphasia, no aproxia Cranial nerve examination: PERRL, EOMI, visual garrett intact, corneal reflexes brisk symmetrically, sensory to face intact, mastication intact, no facial asymmetry is present, no dysarthria, hearing is intact symmetrically, soft palate elevates bilaterally upon phonation, gag reflex intact, flexes SCM and trapezius muscles symmetrically with full power, tongue protrudes midline, no atrophy or facial fasiculations present Cerebellar examination: no dysmetria, performs finger to nose and heel to toth symmetrically without ataxia, no gait ataxia, no truncal ataxia, no difficulty with rapid alternating movements Results - Laboratory Findings CBC and BMP: 05/08/17 06:20 05/08/17 06:20 Abnormal lab findings: Abnormal lab results RBC 4.17 M/mcL (4.19-5.50) L 05/08/17 06:20 Hgb 12.3 g/dL (12.9-16.9) L 05/08/17 06:20 Hct 35.7 % (37.5-50.1) L 05/08/17 06:20 MPV 9.1 fL (9.4-12.4) L 05/08/17 06:20 Glucose 130 mg/dL (70-105) H 05/08/17 06:20 POC Glucose 97 (58-89) H 05/07/17 12:56 HDL Cholesterol 62 mg/dL (40-59) H 05/08/17 06:20 - Diagnostic Findings Additional findings: Several small foci of acute infarction within the left parietal lobe. Stable moderate chronic small vessel ischemic disease within the periventricular white matter with associated cerebral atrophy. Old left basal ganglionic lacunes. LEFT ICA 40- 59 % stenosis CTA of head earlier in JAN was negative Consult Discharge Plan - Plan Instructions: Prednisone (By mouth), Azithromycin (By mouth) Referrals: Sascha Lane MD [Partnered Physician] - (CVA hospital follow up) [facility] [Primary Care Provider] - (Follow up CVA. Patient will need referral to vascular and neurology as recommended by inpatient neruology. ) Prescriptions: Azithromycin [Zithromax] 250 mg PO Q24H #4 tablet predniSONE [PredniSONE] 40 mg PO DAILY #6 tablet
[2017-05-09] MEDS: Budesonide/Formoterol 160/4.5 MDI IH SCH (11:11)
[2017-05-09] MEDS: Tiotropium 18 MCG inhalation IH SCH (11:11)
== END 2017-05-09 11:03 | disposition home or self-care (01) | DRG 64 ==
LOC: EMEROO 12:51 → 2ANU 12:51 → SUATTDRO 16:22 → 2ANU 17:37
PROVIDERS: ADMIT Internal Medicine; ATTEND Internal Medicine

== ENCOUNTER 2021-05-23 20:58 | Inpatient (IN) ==
[2021-05-23 23:26] LABS: Basophils % 0.2 %; Eosinophils % 0.1 %; Hematocrit 35.4 % (37.5-50.1); Hemoglobin 11.4 g/dL (12.9-16.9); Immature Granulocytes % 0.5 % (0-4); Mean Corpuscular HGB Conc 32.2 g/dL (31.6-35.5); Mean Corpuscular Hemoglobin 29.3 pg (28.0-33.3); Mean Platelet Volume 8.9 fL (9.4-12.4); Monocytes # 0.2 K/mcL (0.0-1.3); Monocytes % 1.7 %; Neutrophils # 8.6 K/mcL (1.6-8.9); Platelet Count 163 K/mcL (140-400); Red Blood Count 3.89 M/mcL (4.19-5.50); Red Cell Distribution Width 16.8 % (11.5-14.5); Segmented Neutrophils % 87.5 %; White Blood Count 9.8 K/mcL (4.3-11.1)
[2021-05-23 23:30] LABS: VBG HCO3 29 mEq/L (21-27); VBG PCO2 46 mmHg (41-51); VBG PO2 172 mmHg (25-50)
[2021-05-23 23:49] LABS: Alanine Aminotransferase 9 Units/L (7-52); Albumin/Globulin Ratio 1.3 (1.1-2.2); Alkaline Phosphatase 84 Units/L (34-104); Aspartate Amino Transferase 13 Units/L (13-39); BUN/Creatinine Ratio 20 (6-26); Bilirubin,Direct 0.1 mg/dL (0.0-0.2); Bilirubin,Indirect 0.3 mg/dL (0.0-1.0); Bilirubin,Total 0.4 mg/dL (0.3-1.0); Blood Urea Nitrogen 18 mg/dL (8-23); Calcium 9.3 mg/dL (8.6-10.3); Carbon Dioxide 29 mEq/L (23-29); Chloride 100 mEq/L (98-107); Globulin 3.2 g/dL (2.4-3.5); Glucose 193 mg/dL (70-105); Osmolality,Calculated 295 (280-300); Potassium 3.4 mEq/L (3.5-5.1); Sodium 139 mEq/L (136-145); Total Protein 7.2 g/dL (6.4-8.9); Troponin I < 0.03 ng/mL (< 0.04); eGFR For African Americans > 60 (> 60); eGFR For Non-African Americans > 60 (> 60)
[2021-05-24 00:13] LABS: Adenovirus Not Detected (Not Detect); Bordetella Pertussis Not Detected (Not Detect); Chlamydophila pneumoniae Not Detected (Not Detect); Coronavirus 229E Not Detected (Not Detect); Coronavirus HKU1 Not Detected (Not Detect); Coronavirus NL63 Not Detected (Not Detect); Coronavirus OC43 Not Detected (Not Detect); Human Metapneumovirus DETECTED (Not Detect); Human Rhinovirus/Enterovirus Not Detected (Not Detect); Influenza A Subtype 2009 H1 Not Detected (Not Detect); Influenza B Not Detected (Not Detect); Mycoplasma pneumoniae Not Detected (Not Detect); Parainfluenza Virus 1 Not Detected (Not Detect); Parainfluenza Virus 2 Not Detected (Not Detect); Parainfluenza Virus 3 Not Detected (Not Detect); Parainfluenza Virus 4 Not Detected (Not Detect); Respiratory Syncytial Virus Not Detected (Not Detect); SARS-CoV-2 Not Detected (Not Detect)
[2021-05-24] MEDS ORDERED: Azithromycin 250 MG TABLET PO ONE (00:17)
[2021-05-24] MEDS ORDERED: Furosemide 40 MG/4 ML VIAL IVP ONE (00:17)
[2021-05-24] MEDS ORDERED: Isovue-370 500 ML BOTTLE IVP ONE (03:22)
[2021-05-24] MEDS ORDERED: Melatonin 3 MG TABLET PO PRN (04:34)
[2021-05-24] MEDS ORDERED: Ondansetron 4 MG/2 ML VIAL IVP PRN (04:34)
[2021-05-24] MEDS ORDERED: Acetaminophen 325 MG TABLET PO PRN (04:34)
[2021-05-24] MEDS ORDERED: Naloxone 0.4 MG/ML INJ IVP PRN (04:34)
[2021-05-24 06:02] LABS: Basophils % 0.1 %; Immature Granulocytes % 0.7 % (0-4); Lymphocytes # 1.1 K/mcL (0.6-4.6); Lymphocytes % 12.5 %; Mean Corpuscular HGB Conc 32.4 g/dL (31.6-35.5); Mean Corpuscular Hemoglobin 29.3 pg (28.0-33.3); Mean Corpuscular Volume 90.5 fL (83.0-100.0); Mean Platelet Volume 9.1 fL (9.4-12.4); Monocytes # 0.1 K/mcL (0.0-1.3); Monocytes % 1.4 %; Neutrophils # 7.5 K/mcL (1.6-8.9); Platelet Count 178 K/mcL (140-400); Red Blood Count 4.09 M/mcL (4.19-5.50); Red Cell Distribution Width 16.5 % (11.5-14.5); Segmented Neutrophils % 85.3 %; White Blood Count 8.8 K/mcL (4.3-11.1)
[2021-05-24 06:10] LABS: Alanine Aminotransferase 7 Units/L (7-52); Albumin 4.1 g/dL (3.5-5.7); Albumin/Globulin Ratio 1.3 (1.1-2.2); Alkaline Phosphatase 85 Units/L (34-104); Aspartate Amino Transferase 13 Units/L (13-39); BUN/Creatinine Ratio 22 (6-26); Bilirubin,Total 0.4 mg/dL (0.3-1.0); Blood Urea Nitrogen 18 mg/dL (8-23); Calcium 9.5 mg/dL (8.6-10.3); Carbon Dioxide 30 mEq/L (23-29); Chloride 100 mEq/L (98-107); Globulin 3.1 g/dL (2.4-3.5); Glucose 179 mg/dL (70-105); Magnesium 1.9 mg/dL (1.6-2.6); Osmolality,Calculated 296 (280-300); Phosphorous 3.3 mg/dL (2.7-4.5); Potassium 3.4 mEq/L (3.5-5.1); Sodium 140 mEq/L (136-145); Total Protein 7.2 g/dL (6.4-8.9); eGFR For African Americans > 60 (> 60); eGFR For Non-African Americans > 60 (> 60)
[2021-05-24] MEDS ORDERED: Potassium Chloride Elixir 20 MEQ/15 ML UDC PO ONE (07:31)
[2021-05-24] MEDS ORDERED: Albuterol 2.5 MG/3 ML NEBULIZER IH PRN (07:32)
[2021-05-24] MEDS ORDERED: Perflutren Lipid Microsphere 1.3 ML in 0.9 % Sodium Chloride 8.7 ML IVP PRN (07:38)
[2021-05-24] MEDS: predniSONE 20 MG TABLET PO SCH (09:02)
[2021-05-24] MEDS: Ipratropium/Albuterol Neb 3 ML IH SCH ×3 (11:20→23:24)
[2021-05-24] MEDS: Furosemide 40 MG/4 ML VIAL IVP SCH (11:31)
[2021-05-24] MEDS: Azithromycin 500 MG in 0.9 % Sodium Chloride 250 ML IVPB SCH (20:53)
[2021-05-25] MEDS: Ipratropium/Albuterol Neb 3 ML IH SCH ×4 (03:38→20:43)
[2021-05-25] MEDS ORDERED: polyethylene glycoL 3350 17 GM POWD.PACK PO PRN (07:51)
[2021-05-25] MEDS ORDERED: Fluticasone Propionate Nasal 50 MCG/SPRAY BOTTLE NS PRN (07:51)
[2021-05-25] MEDS ORDERED: *HR* HYDROcodone/Acet 5/325 mg TABLET PO PRN (07:51)
[2021-05-25] MEDS: *HR* Rivaroxaban 10 MG TABLET PO SCH (08:36)
[2021-05-25] MEDS: Cholecalciferol (D-3) 1,000 UNIT (25MCG) TABLET PO SCH (08:37)
[2021-05-25] MEDS: Finasteride 5 MG TABLET PO SCH (08:40)
[2021-05-25] MEDS: Aspirin Enteric Coated 81 MG Tablet PO SCH (08:40)
[2021-05-25] MEDS: predniSONE 20 MG TABLET PO SCH (08:41)
[2021-05-25] MEDS: Furosemide 40 MG/4 ML VIAL IVP SCH (08:41)
[2021-05-25] MEDS: Pyridoxine (B-6) 50 MG TABLET PO SCH (08:41)
[2021-05-25 08:53] LABS: Bilirubin,Urine Negative (Negative); Blood,Urine Negative (Negative); Clarity,Urine Clear (Clear); Color,Urine Light-Yellow (Yellow); Glucose,Urine (UA) Normal (Normal); Ketones,Urine Negative (Negative); Leukocyte Esterase,Urine Negative (Negative); Mucus,Urine Few per lpf (None-Few); Nitrite,Urine Negative (Negative); Protein,Urine 30 mg/dL (Neg-Trace); RBC,Urine 0-3 per hpf (0-3); Urobilinogen,Urine Normal (Normal); WBC,Urine 0-3 per hpf (0-3)
[2021-05-25] MEDS: Tiotropium 10 INH DOSE IH SCH (11:02)
[2021-05-25] MEDS: Artificial Tears SOLN 15 ML BOTTLE BOTH EYES SCH ×2 (17:29→20:04)
[2021-05-25] MEDS: Melatonin 3 MG TABLET PO SCH (20:00)
[2021-05-25] MEDS: Azithromycin 500 MG in 0.9 % Sodium Chloride 250 ML IVPB SCH (20:00)
[2021-05-25] MEDS: Nystatin POWDER 30 GM BOTTLE TP SCH (22:51)
[2021-05-26] MEDS: Ipratropium/Albuterol Neb 3 ML IH SCH ×4 (04:28→20:00)
[2021-05-26] MEDS: Tiotropium 10 INH DOSE IH SCH (07:35)
[2021-05-26] MEDS: Finasteride 5 MG TABLET PO SCH (09:27)
[2021-05-26] MEDS: Aspirin Enteric Coated 81 MG Tablet PO SCH (09:27)
[2021-05-26] MEDS: Cholecalciferol (D-3) 1,000 UNIT (25MCG) TABLET PO SCH (09:27)
[2021-05-26] MEDS: Pyridoxine (B-6) 50 MG TABLET PO SCH (09:27)
[2021-05-26] MEDS: *HR* Rivaroxaban 10 MG TABLET PO SCH (09:27)
[2021-05-26] MEDS: predniSONE 20 MG TABLET PO SCH (09:27)
[2021-05-26] MEDS: Furosemide 40 MG/4 ML VIAL IVP SCH (09:28)
[2021-05-26] MEDS: Artificial Tears SOLN 15 ML BOTTLE BOTH EYES SCH ×3 (09:28→21:07)
[2021-05-26] MEDS: Nystatin POWDER 30 GM BOTTLE TP SCH (09:28)
[2021-05-26] MEDS: Azithromycin 500 MG in 0.9 % Sodium Chloride 250 ML IVPB SCH (21:05)
[2021-05-26] MEDS: Melatonin 3 MG TABLET PO SCH (21:05)
[2021-05-27] MEDS: Nystatin POWDER 30 GM BOTTLE TP SCH ×2 (00:13→09:09)
[2021-05-27 05:15] LABS: Basophils % 0.3 %; Hematocrit 31.6 % (37.5-50.1); Hemoglobin 10.1 g/dL (12.9-16.9); Immature Granulocytes % 1.3 % (0-4); Lymphocytes # 1.7 K/mcL (0.6-4.6); Lymphocytes % 18.6 %; Mean Corpuscular Hemoglobin 29.1 pg (28.0-33.3); Mean Corpuscular Volume 91.1 fL (83.0-100.0); Mean Platelet Volume 9.2 fL (9.4-12.4); Monocytes # 0.7 K/mcL (0.0-1.3); Monocytes % 7.7 %; Neutrophils # 6.5 K/mcL (1.6-8.9); Platelet Count 187 K/mcL (140-400); Red Blood Count 3.47 M/mcL (4.19-5.50); Red Cell Distribution Width 16.1 % (11.5-14.5); Segmented Neutrophils % 72.1 %; White Blood Count 9.1 K/mcL (4.3-11.1)
[2021-05-27 05:40] LABS: BUN/Creatinine Ratio 42 (6-26); Blood Urea Nitrogen 32 mg/dL (8-23); Calcium 9.2 mg/dL (8.6-10.3); Carbon Dioxide 29 mEq/L (23-29); Chloride 103 mEq/L (98-107); Glucose 97 mg/dL (70-105); Osmolality,Calculated 295 (280-300); Potassium 4.1 mEq/L (3.5-5.1); Sodium 139 mEq/L (136-145); eGFR For African Americans > 60 (> 60); eGFR For Non-African Americans > 60 (> 60)
[2021-05-27] MEDS: Ipratropium/Albuterol Neb 3 ML IH SCH ×2 (07:57→11:16)
[2021-05-27] MEDS: predniSONE 20 MG TABLET PO SCH (09:05)
[2021-05-27] MEDS: Cholecalciferol (D-3) 1,000 UNIT (25MCG) TABLET PO SCH (09:06)
[2021-05-27] MEDS: Finasteride 5 MG TABLET PO SCH (09:06)
[2021-05-27] MEDS: *HR* Rivaroxaban 10 MG TABLET PO SCH (09:07)
[2021-05-27] MEDS: Pyridoxine (B-6) 50 MG TABLET PO SCH (09:07)
[2021-05-27] MEDS: Aspirin Enteric Coated 81 MG Tablet PO SCH (09:08)
[2021-05-27] MEDS: Furosemide 40 MG/4 ML VIAL IVP SCH (09:08)
[2021-05-27] MEDS: Artificial Tears SOLN 15 ML BOTTLE BOTH EYES SCH (09:09)
[2021-05-27 11:08] VITALS: BP 121/62; PULSE 97; TEMP 97.6
[2021-05-27] MEDS: Tiotropium 10 INH DOSE IH SCH (11:17)
[2021-05-27 12:06] VITALS: O2SAT 97
== END 2021-05-27 13:00 | disposition home health service (06) | DRG 193 ==
LOC: EMEROOARM 20:58 → 3BNU 20:58
PROVIDERS: ADMIT Internal Medicine; ATTEND Internal Medicine